=== PATIENT | male | born 1965 | race Caucasian/White ===

== ENCOUNTER → 2019-10-12 | Outpatient (CLI) | payer SELFPAY | PROVIDERS: Family Provider Nurse Practitioner Family; Visit Provider Nurse Practitioner Psychiatric/Mental Health | DX: F90.2 Attention-deficit hyperactivity disorder, combined type (principal) ==

== ENCOUNTER → 2019-11-02 08:41 | Outpatient (BNVA) | payer OTHER, SELFPAY | PROVIDERS: Family Provider Nurse Practitioner Family; Visit Provider Nurse Practitioner Psychiatric/Mental Health | DX: F90.2 Attention-deficit hyperactivity disorder, combined type (principal) | CPT/HCPCS: 99213 ==

== ENCOUNTER 2019-11-21 22:14 | Inpatient (IN) | payer OTHER, SELFPAY ==
[2019-11-21 23:02] VITALS: BP 127/86; PULSE 92; RESP 18; TEMP 36.7; O2SAT 97; BMI 22.9
--- NOTE | 2019-11-21 23:21 | ED_ITS ---
Entered by Stacie Rae, acting as scribe for HPI - Psych General: Chief Complaint: Psychiatric Symptoms Stated Complaint: mhe Time Seen by Provider: 11/21/19 23:22 Source: patient Mode of arrival: ambulatory Limitations: no limitations History of Present Illness: HPI Narrative: 54 yo m came to the er pov for a mental health eval. PT states that he has adhd and that he decided that he didnt want to take his medicine and he wants help now. He presents after being near a bunch of ammunition reloading equipment, and then having obsessive thoughts abou t suicide. complaint: suicidal ideation Duration: constant and intermittent History of same: Yes Relieving factors: none Exacerbating factors: none Associated psychiatric symptoms: none Associated symptoms: Reports no associated symptoms; Deny auditory hallucinations or visual hallucinations Review of Systems General: Reports: other (negative unless marked) Const: Denies: fever or chills Eyes: Denies: change in vision or blurry vision ENMT: Denies: painful swallowing, swelling of lips/tongue, post nasal drip or facial/sinus pain Card: Denies: chest pain, palpitations, irregular heart rhythm, edema or swelling of feet/ankles Resp: Denies: shortness of breath, productive cough, non-productive cough or wheezing GI: Denies: abdominal pain, nausea, vomiting, blood in stool or black tarry stool : Denies: difficulty urinating, painful urination or blood in urine Skin/Breast: Denies: rash, itching or redness Neuro: Denies: headache or dizziness Psych: Reports: anxiety; Denies: visual hallucinations or auditory hallucinations PFSH ED PFSH: Statuses (acute, chronic, etc) shown below reflect problem list status as previously entered and may not be historically accurate Social History (Updated 11/02/19 @ 08:57 by Sabiha Jones LPN) Smoking and tobacco status: never smoked Quit status (tobacco): considering quitting Second hand smoke exposure: No Physical Exam Const: GENERAL APPEARANCE: cooperative and anxious ORIENTATION/CONSCIOUSNESS: Yes oriented to person, Yes oriented to place and Yes oriented to time HENMT: COMMON NORMALS: normocephalic, external ears normal and external nose normal HEAD & SCALP: normocephalic; no scalp tenderness FACE & SINUS: normal facial exam NOSE: external nose normal and no nasal discharge EXTERNAL EAR: Yes external ears normal MOUTH: tongue normal THROAT: posterior oropharynx normal Eye: COMMON NORMALS: PERRL, EOMs intact bilaterally and conjunctivae normal EYELID: eyelids normal CONJUNCTIVA: Yes conjunctivae normal PUPIL: Yes PERRL Chest: COMMONS NORMALS: inspection of chest normal CHEST: No tenderness Resp: COMMON NORMALS: clear to auscultation bilaterally EFFORT & INSPECTION: No tachypneic, No respiratory distress, No retractions, No uses accessory muscles and No tracheal deviation AUSCULTATION: clear to auscultation bilaterally, no rhonchi, no wheezes and lung sounds not diminished Cardio: COMMON NORMALS: regular rate and regular rhythm RATE: regular rate RHYTHM: regular rhythm HEART SOUNDS: no murmurs PERIPHERAL PULSES: radial pulses present GI: INSPECTION: No abdominal distension AUSCULTATION: No hyperactive bowel sounds and No hypoactive bowel sounds PALPATION: No guarding and No rigid PERCUSSION: no dullness to percussion and no tympanic to percussion : COMMON NORMALS: Yes no CVA tenderness BLADDER/KIDNEY EXAM: Yes no CVA tenderness Back/Pelvis: COMMON NORMALS: no CVA tenderness Neuro: SENSORIUM/ORIENTATION: Yes oriented to person, Yes oriented to place and Yes oriented to time Psych: COMMON NORMALS: cooperative ATTITUDE: Yes agitated and No aggressive ACTIVITY/MOTOR BEHAVIOR: Yes psychomotor agitation SPEECH: Yes pressured MOOD & AFFECT: Yes anxious and Yes fearful THOUGHT PROCESS: disorganized THOUGHT CONTENT: Yes suicidality ATTENTION/CONCENTRATION: Yes attention grossly intact INSIGHT: fair Skin: COMMON NORMALS: no rashes or lesions noted GENERAL SKIN EXAM: no rashes or lesions noted MDM - Psych MDM Narrative: Medical decision making narrative: 54-year-old male presenting with recurrent thoughts of suicide today. This worried him, so he came to the emergency department for psychiatric admission willingly. His laboratory showed only a slightly elevated salicylate level. His bicarbonate level was mildly low. Salicylate and BMP will be repeated later this morning to ensure they are not worsening. His EKG showed no acute ST changes. He is otherwise medically stable. His urine drug screen was positive for barbiturates, but he takes butalbital for migraine Lab Data: Attestation: I reviewed the patient's lab results. Labs: Lab Results 11/21/19 11/21/19 11/21/19 Range/Units 23:25 23:25 23:46 WBC (4.0-10.0) 10^3/ uL RBC (4.1-5.3) 10^6/u L Hgb (11.7-16.6) g/dL Hct (42.0-52.0) % MCV (80-94) fL MCH (28.0-34.0) pg MCHC (30.0-36.0) g/dL RDW (12.1-15.1) % Plt Count (130-400) 10^3/c mm MPV (7.4-10.4) fL Neut % (Auto) % Lymph % (Auto) % Dorado % (Auto) % Eos % (Auto) % Baso % (Auto) % Neut # (Auto) (1.8-7.7) 10^3/u L Lymph # (Auto) (0.8-4.8) 10^3/u L Dorado # (Auto) (0.2-0.9) 10^3/u L Eos # (Auto) (0.0-0.8) 10^3/u L Baso # (Auto) (0.0-0.1) 10^3/u L Nucleated RBC % (a uto) % Nucleated RBCs # /100WBC Sodium 139 (136-145) mmol/L Potassium 3.7 (3.5-5.1) mmol/L Chloride 103 (98-107) mmol/L Carbon Dioxide 19 L (22-29) mmol/L Anion Gap 20.7 H (5-19) BUN 11 (6-20) mg/dL Creatinine 1.1 (0.7-1.2) mg/dL GFR Calculation 69.5 L (90-130) mL/min Glucose 144 H (65-115) mg/dL Calcium 9.5 (8.5-10.5) mg/dL Total Bilirubin 0.2 (0.15-1.2) mg/dL AST 15 (0-40) U/L ALT 9 (0-41) U/L Alkaline Phosphata se 99 (40-130) IU/L Total Protein 7.8 (6.6-8.7) g/dL Albumin 4.4 (3.5-5.2) g/dL Globulin 3.4 (1.3-4.6) g/dL Urine Color Yellow (Yellow) Urine Appearance Clear (CLEAR) Urine pH 5 (5-7) Ur Specific Gravit y 1.015 (1.005-1.030) Urine Protein Neg (Negative) Urine Glucose (UA) Norm (Normal) Urine Ketones Negative (Negative) Urine Occult Blood Neg (Negative) Urine Nitrate Negative (Negative) Urine Bilirubin Neg (NEGATIVE) Urine Urobilinogen Norm (Negative) mg/dL Ur Leukocyte Lenka ase Negative (Negative) Salicylates 12.8 H (3-10) mg/dL Urine Opiates Scre en Negative (Negative) ng/mL Acetaminophen < 5.0 L (10-30) ug/mL Ur Barbiturates Sc reen Positive H (Negative) ng/mL Ur Phencyclidine S crn Negative (Negative) ng/mL Ur Amphetamines Sc reen Negative (Negative) ng/mL U Benzodiazepines Scrn Negative (Negative) ng/mL Claiborne (0.6-1.2) mmol/L Urine Cocaine Scre en Negative (Negative) ng/mL U Marijuana (THC) Screen Negative (Negative) ng/mL Ethyl Alcohol 67 H (0-10) mg/dL 11/21/19 11/22/19 Range/Units 23:46 00:46 WBC 6.3 (4.0-10.0) 10^3/ uL RBC 4.57 (4.1-5.3) 10^6/u L Hgb 14.7 (11.7-16.6) g/dL Hct 44.0 (42.0-52.0) % MCV 96.3 H (80-94) fL MCH 32.2 (28.0-34.0) pg MCHC 33.4 (30.0-36.0) g/dL RDW 12.7 (12.1-15.1) % Plt Count 284 (130-400) 10^3/c mm MPV 9.4 (7.4-10.4) fL Neut % (Auto) 44.9 % Lymph % (Auto) 43.3 % Dorado % (Auto) 8.7 % Eos % (Auto) 1.9 % Baso % (Auto) 1.0 % Neut # (Auto) 2.8 (1.8-7.7) 10^3/u L Lymph # (Auto) 2.7 (0.8-4.8) 10^3/u L Dorado # (Auto) 0.6 (0.2-0.9) 10^3/u L Eos # (Auto) 0.1 (0.0-0.8) 10^3/u L Baso # (Auto) 0.1 (0.0-0.1) 10^3/u L Nucleated RBC % (a uto) 0 % Nucleated RBCs # 0.0 /100WBC Sodium (136-145) mmol/L Potassium (3.5-5.1) mmol/L Chloride (98-107) mmol/L Carbon Dioxide (22-29) mmol/L Anion Gap (5-19) BUN (6-20) mg/dL Creatinine (0.7-1.2) mg/dL GFR Calculation (90-130) mL/min Glucose (65-115) mg/dL Calcium (8.5-10.5) mg/dL Total Bilirubin (0.15-1.2) mg/dL AST (0-40) U/L ALT (0-41) U/L Alkaline Phosphata se (40-130) IU/L Total Protein (6.6-8.7) g/dL Albumin (3.5-5.2) g/dL Globulin (1.3-4.6) g/dL Urine Color (Yellow) Urine Appearance (CLEAR) Urine pH (5-7) Ur Specific Gravit y (1.005-1.030) Urine Protein (Negative) Urine Glucose (UA) (Normal) Urine Ketones (Negative) Urine Occult Blood (Negative) Urine Nitrate (Negative) Urine Bilirubin (NEGATIVE) Urine Urobilinogen (Negative) mg/dL Ur Leukocyte Lenka ase (Negative) Salicylates (3-10) mg/dL Urine Opiates Scre en (Negative) ng/mL Acetaminophen (10-30) ug/mL Ur Barbiturates Sc reen (Negative) ng/mL Ur Phencyclidine S crn (Negative) ng/mL Ur Amphetamines Sc reen (Negative) ng/mL U Benzodiazepines Scrn (Negative) ng/mL Claiborne 0.1 L (0.6-1.2) mmol/L Urine Cocaine Scre en (Negative) ng/mL U Marijuana (THC) Screen (Negative) ng/mL Ethyl Alcohol (0-10) mg/dL Discharge Plan Discharge Admit Provider: Chico Del Rio Coding Level of Care Code ED Nurse Assessor for Chg Fwd The documentation recorded by the Butch brooks Stephanie Lyn, accurately reflects the service I personally performed and the decisions made by Tung brantley Jeremy John, DO Nov 21, 2019 22:14
--- NOTE | 2019-11-21 23:32 | ECG_ITS ---
Measurements Intervals [place] Rate: 90 P: 6 CT: 149 QRS: 82 QRSD: 85 T: 35 QT: 343 QTc: 421 SINUS RHYTHM POSSIBLE LEFT ATRIAL ENLARGEMENT [-0.1mV P WAVE IN V1/V2] LOW QRS VOLTAGE IN PRECORDIAL LEADS [QRS DEFLECTION < 1.0 mV IN CHEST LEADS] Compared to ECG 02/29/2016 06:26:26 Low QRS voltage now present Sinus tachycardia no longer present Electronically Signed On 11-22-2019 20:04:38 SURVEY PROJECT MANAGER by Priscila Morales M.D. [email or web address] beck
[2019-11-22 00:05] LABS: Add Urine Microscopic? NO
[2019-11-22 00:14] LABS: Barbiturates Screen Urine Positive (Negative); Bilirubin Urine Neg (NEGATIVE); Blood Urine Neg (Negative); Glucose Urine UA Norm (Normal); Ketones Urine Negative (Negative); Leukocyte Esterase Urine Negative (Negative); Nitrate Urine Negative (Negative); Protein Urine Neg (Negative); Specific Gravity, Urine 1.015 (1.005-1.030); Urine Appearance Clear (CLEAR); Urine Color Yellow (Yellow); Urobilinogen Urine Norm (Negative); pH Urine 5 (5-7)
[2019-11-22 00:15] LABS: Amphetamines Screen Urine Negative (Negative); Benzodiazepines Screen Urine Negative (Negative); Cocaine Screen Urine Negative (Negative); Opiate Screen Urine Negative (Negative); PCP Screen Urine Negative (Negative); THC Screen Urine Negative (Negative)
[2019-11-22 00:21] LABS: Alanine Aminotransferase 9 U/L (0-41); Albumin Level 4.4 g/dL (3.5-5.2); Alcohol Level 67 mg/dL (0-10); Alkaline Phosphatase 99 IU/L (40-130); Anion Gap 20.7 (5-19); Aspartate Amino Transferase 15 U/L (0-40); Blood Urea Nitrogen 11 mg/dL (6-20); Calcium 9.5 mg/dL (8.5-10.5); Carbon Dioxide 19 mmol/L (22-29); Chloride 103 mmol/L (98-107); Globulin 3.4 g/dL (1.3-4.6); Glomerular Filtration Rate 69.5 mL/min (90-130); Glucose 144 mg/dL (65-115); Potassium 3.7 mmol/L (3.5-5.1); Salicylate 12.8 mg/dL (3-10); Sodium 139 mmol/L (136-145); Total Bilirubin 0.2 mg/dL (0.15-1.2); Total Protein 7.8 g/dL (6.6-8.7)
[2019-11-22 00:24] LABS: Acetaminophen < 5.0 ug/mL (10-30)
[2019-11-22 00:28] LABS: Lithium 0.1 mmol/L (0.6-1.2)
[2019-11-22 00:57] LABS: Basophils # 0.1 10^3/uL (0.0-0.1); Eosinophils # 0.1 10^3/uL (0.0-0.8); Eosinophils % 1.9 %; Hemoglobin 14.7 g/dL (11.7-16.6); Lymphocytes # 2.7 10^3/uL (0.8-4.8); Lymphocytes % 43.3 %; Mean Corpuscular HGB Conc 33.4 g/dL (30.0-36.0); Mean Corpuscular Hemoglobin 32.2 pg (28.0-34.0); Mean Corpuscular Volume 96.3 fL (80-94); Mean Platelet Volume 9.4 fL (7.4-10.4); Monocytes # 0.6 10^3/uL (0.2-0.9); Monocytes % 8.7 %; Neutrophils # 2.8 10^3/uL (1.8-7.7); Neutrophils % 44.9 %; Nucleated Red Blood Cells % 0 %; Platelet Count 284 10^3/cmm (130-400); Red Blood Count 4.57 10^6/uL (4.1-5.3); Red Cell Distribution Width 12.7 % (12.1-15.1); White Blood Count 6.3 10^3/uL (4.0-10.0)
[2019-11-22 02:28] VITALS: BP 118/81; PULSE 80; RESP 16; O2SAT 98
[2019-11-22 02:56] VITALS: BP 110/81; PULSE 88; RESP 19; TEMP 36.7; O2SAT 98
[2019-11-22 06:00] VITALS: BP 124/73; PULSE 85; RESP 20; TEMP 36.8; O2SAT 97
[2019-11-22] MEDS: nicotine 2 mg Gum BUCCAL ×3 (08:10→17:45)
[2019-11-22] MEDS: folic acid 1 mg Tablet PO (09:26)
[2019-11-22] MEDS: thiamine 100 mg Tablet PO (09:26)
[2019-11-22] MEDS: multivitamin therapeutic Tablet 1 TAB PO (09:26)
[2019-11-22 10:57] LABS: Anion Gap 15.3 (5-19); Blood Urea Nitrogen 18 mg/dL (6-20); Calcium 9.5 mg/dL (8.5-10.5); Carbon Dioxide 21 mmol/L (22-29); Chloride 104 mmol/L (98-107); Creatinine Clr Calc Pharmacy 85.9799; Glomerular Filtration Rate 77.6 mL/min (90-130); Glucose 100 mg/dL (65-115); Osmolality Calculated 279 mOsm/kg (285-295); Potassium 4.3 mmol/L (3.5-5.1); Salicylate 3.7 mg/dL (3-10); Sodium 136 mmol/L (136-145)
[2019-11-22] MEDS: methylphenidate 10 mg Tablet 40 MG PO ×2 (11:04→17:03)
[2019-11-22 14:00] VITALS: BP 124/73; PULSE 85; RESP 20; TEMP 36.8; O2SAT 97
--- NOTE | 2019-11-22 14:09 | P.HP_ITS ---
Providers/Chief Complaint Admitting Physician: Chico Del Rio MD Primary Care Provider: Abdifatah He MD Chief Complaint: SI HPI NPU History of Present Illness Denny Gleason is a 54 year old male who presented to the emergency department reporting that he needed to get restarted on his medication. There is some confusing talk about his ADHD and he'll needing his Adderall which was stopped but needed to be restarted. He was admitted to the neuropsych unit due to impulsivity, racing thoughts and inability to function in his current state. He reports he had been on lithium several months ago and stopped taking it but continued to take the Adderall. He reports that over the last several days he stopped taking the Adderall and is impulsivity even had gotten worse. He endorses that he couldn't sleep, he blew $12,000 in a casino in [place], he is getting strippers even though he has a girlfriend, and he is not able to settle his mind. He is very resistant to the idea that this is mainly but it is clearly so. We reviewed his evaluation from 2018 here at [facility] and that is included below. He endorsed that the information found therein was accurate. We discussed the risks benefits alternatives of getting him back on a mood stabilizer particularly the lithium that helped him in the past, and he understood and agreed to see as documented in his note. Of note he felt that at the really elevated dose that he was having a metallic taste in his mouth. It was unclear that he was getting regular or yearly lithium levels. Psychiatric history: He reports that the information below is accurate. He reports that he has had a few psychiatric hospitalizations in his life. Substance abuse history: He denies smoking cigarettes but does report that he does about a can of chew every 4 days. 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 He reports that he puts that she wanted the other side. He reports he has a beer occasionally but because of his hepatitis C he rarely does that. He denies marijuana or any other illicit drug. He denies any rehabs reports he had a DUI in college. Family history: He denies any contributory issues of mental health or addiction in his family no suicide attempts or completions. Psychosocial history: Please see below, but he does report being one of 7 children he is in the middle. His parents were together when he was born he reports he had a great childhood he graduated high school and college. He endorses being heterosexual with his longest relationship between 12 years. 1 time and 1 time. He never had children. Per 02/10/18 eval: [facility] Psychiatric Evaluation [facility] Psychiatric Evaluation Time in: 2:05pm Time out: 2:50pm CHIEF COMPLAINT: 'I'm here to get settled in on my meds' HISTORY OF PRESENT ILLNESS: Patient came for psych eval. He said he has been taking medications all his life and he is currently on medications which are controlling his symptoms. 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 He said his sleep is better with Seroquel. He said he takes the Seroquel around 9pm, sleeps around 9:30pm/ 9:40pm when he wakes up to use the restroom once or twice and wakes up finally around 7am/ 7:30am. He said in the past sometimes (when not on medications he would not sleep). He said when he is manic, he drives fast, always on the go, rapid speech, gambles, making poor decisions and is easily distractible. He said he has been up for 72 hours without sleep. He said his family refer to him as a compulsive spender. Modified from mental health assessment dated 02/03/18: reports a persistent pattern of inattention and/or hyperactivity-impulsivity that interferes with function as characterized by often fails to pay attention to details, difficulty sustaining attention in tasks, and is often easily distracted by extraneous stimuli. Reports often fidgets and squirms in seat, feeling restless, unable to engage in leisure activities, often on the go, and often talks excessively. My problem is concentrating, focusing on anything, watching a tv or going the drive-in. I fidget a lot.? I am always on the go and have rapid speech. Several inattentive or hyperactive-impulsive symptoms were present prior to age 11 years. Several inattentive or hyperactive-impulse symptoms are present at home and school. Modified from mental health assessment dated 02/03/18: ATTENTION- DEFICIT/HYPERACTIVITY DISORDER CRITERIA: reports a persistent pattern of inattention and/or hyperactivity-impulsivity that interferes with function as characterized by often fails to pay attention to details, difficulty sustaining attention in tasks, and is often easily distracted by extraneous stimuli. Reports often fidgets and squirms in seat, feeling restless, unable to engage in leisure activities, often on the go, and often talks excessively. My problem is concentrating, focusing on anything, watching a tv or going the drive-in. I fidget a lot.? I am always on the go and have rapid speech. Several inattentive or hyperactive-impulsive symptoms were present prior to age 11 years. Several inattentive or hyperactive-impulse symptoms are present at home and school. Patient denied symptoms suggestive of psychosis. Patient requested to go the [facility]) to have his lab test done. PAST PSYCHIATRIC HISTORY: -Medication trials include Depakote (made him feel sluggish), weight gain, Ritalin (helped him but he stopped taking it for unclear reasons). -Patient said he was admitted twice in 1 month. He said he initially lied to them and told them he would take his medications but he did not and ended up in hospital again. -Patient denied suicide attempt. -Patient said he was diagnosed with ADHD and Bipolar in the past. FAMILY MEDICAL HISTORY: Family Psychiatric History: None Reported Substance Use within Family: None Reported History of Suicide in Family: No PAST MEDICAL HISTORY: Cancer (jaw cancer), Surgical Procedure (kidney stone, appendix, jaw, left knee) MEDICATION LIST: -C[place] carb 150mg, take 3 capsules PO bid -Adderall XR 10mg, 2 capsules PO q am. -Seroquel 100mg PO qhs -Hydroxyzine 50mg PO qhs -Prazosin 1 mg PO qhs. SUBSTANCE ABUSE HISTORY: Patient denied. SOCIAL HISTORY: Patient was born in [place], [place] was raised by parents along 5 brothers and 1 sister. He said he was diagnosed with ADHD and bipolar in college. He said he graduated from [employer] and has an bachelors in marketing. He said he twice, is currently and has no children due to a baseball injury. Meds NPU Home Medications Medication Instructions Recorded Confirmed Type butalbital-acetaminophen 1 tab PO DAILY 11/21/19 11/21/19 History glecaprevir-pibrentasvir [Mavyret] 1 tab PO DAILY 11/21/19 11/21/19 History lithium carbonate 800 mg PO BID 11/21/19 11/21/19 History Allergies Allergy/AdvReac Type Severity Reaction Status Date / Time No Known Allergies Allergy Verified 11/02/19 08:52 PFSH NPU PFSH: Statuses (acute, chronic, etc) shown below reflect problem list status as previously entered and may not be historically accurate Social History (Updated 11/02/19 @ 08:57 by Sabiha Jones LPN) Smoking and tobacco status: never smoked Quit status (tobacco): considering quitting Second hand smoke exposure: No Mental Status Exam MSE Comments: This is a well-nourished well-developed white male with adequate dress, grooming and eye contact. No abnormal movements except for significant psychomotor agitation. Cooperative with exam in no acute distress. Speech was pressured with significant increased rate and volume. Mood described as really good, affect elevated/manic. Thought process organized. Thought content: Patient denied any suicidal or homicidal ideations, there were no delusions reported noted, he denied any auditory or visual hallucinations. Attention and concentration are marginal, memory appears reliable but none were formally tested. He is alert and oriented ?3. Insight and judgment are limited. Vitals/I&O/Wt Last Vital Signs Temp 98.2 F 11/22/19 06:00 Pulse 85 11/22/19 06:00 Resp 20 H 11/22/19 06:00 BP 124/73 11/22/19 06:00 Pulse Ox 97 11/22/19 06:00 Weight last 48 hrs Weight 72.575 kg Data NPU : 11/22/19 00:46 11/22/19 10:03 A&P Assessment and plan (1) Bipolar 1 disorder, manic, moderate: This a 54 year old white male who presents in rodolfo liliana, off of his medication with desire to resume treatment. 1. Continue current medication. 2. Restart Cedar Rock 3. consider stopping ritalin. 4. Q 15 min safety checks. 5. Encourage individual, group and milieu therapy. 6. Recommend appropriate aftercare at discharge. Status: Acute Code(s): F31.12 - Bipolar disorder, current episode manic without psychotic features, moderate (2) Liliana: Status: Acute Code(s): F30.9 - Manic episode, unspecified (3) ADHD: Status: Acute Code(s): F90.9 - Attention-deficit hyperactivity disorder, unspecified type (4) Alcohol abuse: Status: Acute Code(s): F10.10 - Alcohol abuse, uncomplicated Involuntary Hold Information 96 Hour Hold: 96 Hour Involuntary Admission: No Attestations NPU Medical Necessity Statement*: Inpatient hospitalization is medically necessary and the clinically appropriate intervention at this time. Overnight for over two midnights. Start lithium and titrate. Likely LOS 4-6 days Coding Level of Care Code Acute Rn Family Practice for [facility] Fwd Diagnoses Bipolar 1 disorder, manic, moderate F31.12 Liliana F30.9 ADHD F90.9 Alcohol abuse F10.10
[2019-11-22 14:34] VITALS: BP 120/79; PULSE 88; RESP 18; TEMP 36.7; O2SAT 96
[2019-11-22] MEDS: lithium carbonate 300 mg Capsule PO (15:12)
[2019-11-22] MEDS: trazodone 50 mg Tablet PO (20:33)
[2019-11-22] MEDS: lithium carbonate 300 mg Capsule 600 MG PO (20:34)
--- NOTE | 2019-11-22 20:36 | PC.NURSE ---
TRAZODONE 50 MG PO GIVEN SLEEP AIDE.
[2019-11-22 22:00] VITALS: BP 105/59; PULSE 79; RESP 18; TEMP 36.9; O2SAT 97
[2019-11-23 06:00] VITALS: BP 112/69; PULSE 78; RESP 19; TEMP 36.2; O2SAT 95
[2019-11-23] MEDS: nicotine 2 mg Gum BUCCAL ×4 (06:33→17:56)
[2019-11-23] MEDS: folic acid 1 mg Tablet PO (08:49)
[2019-11-23] MEDS: thiamine 100 mg Tablet PO (08:49)
[2019-11-23] MEDS: multivitamin therapeutic Tablet 1 TAB PO (08:49)
[2019-11-23] MEDS: methylphenidate 10 mg Tablet 40 MG PO ×2 (08:50→17:12)
--- NOTE | 2019-11-23 10:29 | P.PN_ITS ---
Subjective NPU Subjective: Interval history: Denny presents today reporting that the lithium resumption isn't working well. He reports he always does well on lithium. We continued to discuss the fact that ultimately the Adderall long- term may be a bad idea. For now to avoid multiple moving carts we will continue the medication as prescribed but he is aware that there are concerns about how the Adderall could be feeding into the liliana which is a legitimate presents for him still. He struggling with sleep and is eating okay. Mental Status Exam MSE Comments: This is a well-nourished well-developed white male with adequate dress, grooming and eye contact. No abnormal movements except for significant psychomotor agitation. Cooperative with exam in no acute distress. Speech was pressured with significant increased rate and volume. Mood described as great, affect elevated/manic. Thought process organized. Thought content: Patient denied any suicidal or homicidal ideations, there were no delusions reported noted but he does have grandiosity, he denied any auditory or visual halluci nations. Attention and concentration are marginal, memory appears reliable but none were formally tested. He is alert and oriented ?3. Insight and judgment are limited. Vitals/I&O/Wt Last Vital Signs Temperature 97.2, pulse 78, respirations 19, pulse ox 95%, blood pressure 112/69. Data NPU : 11/22/19 00:46 11/22/19 10:03 A&P Additional A&P Information (1) Bipolar 1 disorder, manic, moderate: This a 54 year old white male who presents in rodolfo liliana, off of his medication with desire to resume treatment. 1. Continue current medication. 2. Q 15 min safety checks. 3. Encourage individual, group and milieu therapy. 4. Recommend appropriate aftercare at discharge. (2) Liliana: (3) ADHD: (4) Alcohol abuse: Involuntary Hold Information 96 Hour Hold: 96 Hour Involuntary Admission: No Attestations NPU Medical Necessity Statement*: Inpatient hospitalization is medically necessary and the clinically appropriate intervention at this time. Overnight for over two midnights. Start lithium and titrate. Likely LOS 4-6 days Coding Level of Care Code Acute Capacitor Pack Press Operator for Chiara Coffey
[2019-11-23 13:27] VITALS: BP 131/80; PULSE 77; RESP 20; TEMP 36.8; O2SAT 98
[2019-11-23] MEDS: lithium carbonate 300 mg Capsule 600 MG PO (20:55)
[2019-11-23 21:08] VITALS: BP 117/83; PULSE 92; RESP 26; TEMP 36.4; O2SAT 98
[2019-11-24] MEDS: nicotine 2 mg Gum BUCCAL ×2 (05:35→10:12)
[2019-11-24 06:00] VITALS: BP 118/73; PULSE 67; RESP 20; TEMP 37; O2SAT 97
--- NOTE | 2019-11-24 08:17 | PM.NPN ---
Subjective NPU Subjective: Interval history: The patient states that he is feeling better and I asked him what better actually means to him. He says that his mind is slowing down and he is beginning to be able to focus. He can understand that his speech is still pressured and his thoughts are racing but he can keep track of them now. Medications: Reviewed: Yes Medication Review Details: The patient asks if his second dose of stimulant could be administered at 1400 instead of at noon. I discussed this with the medication nurse and she will make that change. Mental Status Exam MSE Comments: The patient is alert and oriented to person, place, time, and situation. Hygiene is disheveled. Sensorium is spotty but he actually understands what we tell him and what's going on around him. The patient maintains appropriate eye contact, is cooperative and relates well to me. Behavior shows moderate psychomotor agitation, driven by waning liliana. Mood is mildly euphoric. Affect is appropriate to his mood. Thought processes are scattered but they are free of blocking. However, they are definitely racing and given to flight of ideas. Speech is of normal volume, without dysarthria or aprosody but remains pressured. The patient denies auditory or visual hallucinations or delusions. The patient denies suicidal or homicidal ideation, plan or intent. He exhibits no assaultive behavior this morning. Memory is intact for recent and remote events. Fund of knowledge is adequate given vocabulary. Insight and judgment are impaired despite his recognition of problems and desire for treatment. For example, he minimizes his alcohol consumption and remains in rodolfo denial. Vitals/I&O/Wt Last Vital Signs Temp 98.6 F 11/24/19 06:00 Pulse 67 11/24/19 06:00 Resp 20 H 11/24/19 06:00 BP 118/73 11/24/19 06:00 Pulse Ox 97 11/24/19 06:00 Data NPU : 11/22/19 00:46 11/22/19 10:03 A&P Additional A&P Information Assessment and plan (1) Bipolar 1 disorder, manic, moderate: This a 54 year old white male who presents in rodolfo liliana, off of his medication with desire to resume treatment. 1. Continue current medication. 2. [place] is now at 600 mg p.o. twice daily. [place] level should be done in the next few days. 3. Amphetamine salts p.o. twice daily at 0700 and 1400. 4. Q 15 min safety checks. 5. Encourage individual, group and milieu therapy. 6. Recommend appropriate aftercare at discharge. The patient states he is a long-term patient of Dr. 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 He intends to return to continuing care over there. (2) Liliana: (3) ADHD: (4) Alcohol abuse: Involuntary Hold Information 96 Hour Hold: 96 Hour Involuntary Admission: No Attestations NPU Medical Necessity Statement*: The patient is still clearly manic but improving. I anticipate 3 to 5 midnights at least 2 midnights' additional stay is indicated. Time Spent in Patient Care: Greater than 35 minutes (>than 50% of time spent in counselling and/or direct pt care on unit). Coding Level of Care Code Acute Stamping Die Maker for Chiara Coffey
[2019-11-24] MEDS: folic acid 1 mg Tablet PO (08:20)
[2019-11-24] MEDS: thiamine 100 mg Tablet PO (08:20)
[2019-11-24] MEDS: lithium carbonate 300 mg Capsule 600 MG PO ×2 (08:20→16:45)
[2019-11-24] MEDS: methylphenidate 10 mg Tablet 40 MG PO ×2 (08:20→13:00)
[2019-11-24] MEDS: multivitamin therapeutic Tablet 1 TAB PO (08:20)
[2019-11-24] MEDS: nicotine 21 mg Patch 1 PATCH TRANSDERMA (13:00)
[2019-11-24 14:00] VITALS: BP 118/80; PULSE 103; RESP 20; TEMP 36.8; O2SAT 98
[2019-11-24 19:54] VITALS: BP 126/86; PULSE 83; RESP 18; TEMP 36.9
[2019-11-24] MEDS: trazodone 50 mg Tablet PO (20:20)
[2019-11-25 05:31] VITALS: BP 114/79; PULSE 82; RESP 18; TEMP 36.5
[2019-11-25] MEDS: nicotine 2 mg Gum BUCCAL ×2 (06:19→09:50)
[2019-11-25] MEDS: lithium carbonate 300 mg Capsule 600 MG PO (08:01)
[2019-11-25] MEDS: folic acid 1 mg Tablet PO (08:01)
[2019-11-25] MEDS: thiamine 100 mg Tablet PO (08:01)
[2019-11-25] MEDS: multivitamin therapeutic Tablet 1 TAB PO (08:01)
[2019-11-25] MEDS: methylphenidate 10 mg Tablet 40 MG PO (08:01)
[2019-11-25 13:49] VITALS: BP 124/80; PULSE 97; RESP 20; TEMP 36.8; O2SAT 98
[2019-11-25 14:56] VITALS: BP 124/80; PULSE 97; RESP 20; TEMP 36.8; O2SAT 98
[2019-11-25 14:58] LABS: Lithium 0.7 mmol/L (0.6-1.2)
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
== END 2019-11-25 15:45 | disposition home or self-care (01) | DRG 885 ==
LOC: ER 11-22 01:45 → NP 11-22 01:45
PROVIDERS: Psychiatry & Neurology Psychiatry; Admitting Provider Psychiatry & Neurology Psychiatry; Emergency Provider Emergency Medicine; PCP Family Medicine; Visit Provider Psychiatry & Neurology Psychiatry
DX: F31.9 Bipolar disorder, unspecified (principal); F90.9 Attention-deficit hyperactivity disorder, unspecified type; F17.220 Nicotine dependence, chewing tobacco, uncomplicated; B19.20 Unspecified viral hepatitis C without hepatic coma; Z85.89 Personal history of malignant neoplasm of other organs and systems
CPT/HCPCS: 12345; 36415; 80048; 80053; 80178; 80307; 81003; 85025; 93005; 99284; A9270

== ENCOUNTER → 2020-01-21 08:44 | Outpatient (BNVA) | payer OTHER, SELFPAY | PROVIDERS: PCP Family Medicine; Visit Provider Family Medicine | DX: F31.12 Bipolar disorder, current episode manic without psychotic features, moderate (principal) | CPT/HCPCS: 80178 ==

== ENCOUNTER 2020-03-06 19:19 | Inpatient (IN) | payer OTHER, SELFPAY ==
[2020-03-06 19:29] VITALS: BP 122/82; PULSE 122; RESP 14; TEMP 36.6; O2SAT 95; BMI 23.6
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
[2020-03-06 20:20] VITALS: BP 122/83; PULSE 122; RESP 20; TEMP 36.6; O2SAT 96
[2020-03-06 20:28] LABS: Basophils % 0.5 %; Eosinophils % 0.4 %; Hematocrit 50.4 % (42.0-52.0); Hemoglobin 17.5 g/dL (11.7-16.6); Lymphocytes # 2.9 10^3/uL (0.8-4.8); Mean Corpuscular HGB Conc 34.7 g/dL (30.0-36.0); Mean Corpuscular Volume 94.9 fL (80-94); Mean Platelet Volume 9.7 fL (7.4-10.4); Monocytes # 0.7 10^3/uL (0.2-0.9); Monocytes % 9.7 %; Neutrophils # 3.9 10^3/uL (1.8-7.7); Neutrophils % 51.3 %; Nucleated Red Blood Cells % 0 %; Platelet Count 350 10^3/cmm (130-400); Red Blood Count 5.31 10^6/uL (4.1-5.3); Red Cell Distribution Width 12.4 % (12.1-15.1); White Blood Count 7.5 10^3/uL (4.0-10.0)
[2020-03-06] MEDS: LORazepam 1 mg Tablet PO (20:30)
[2020-03-06 20:48] LABS: Lithium 0.1 mmol/L (0.6-1.2)
[2020-03-06 20:59] LABS: Alanine Aminotransferase 11 U/L (0-41); Albumin Level 5.1 g/dL (3.5-5.2); Alcohol Level 11 mg/dL (0-10); Alkaline Phosphatase 71 IU/L (40-130); Aspartate Amino Transferase 15 U/L (0-40); Blood Urea Nitrogen 12 mg/dL (6-20); Carbon Dioxide 18 mmol/L (22-29); Chloride 103 mmol/L (98-107); Globulin 2.9 g/dL (1.3-4.6); Glomerular Filtration Rate 69.5 mL/min (90-130); Glucose 87 mg/dL (65-115); Osmolality Calculated 281 mOsm/kg (285-295); Salicylate 28.1 mg/dL (3-10); Sodium 138 mmol/L (136-145); Thyroid Stimulating Hormone 0.78 uIU/mL (0.27-4.20); Total Bilirubin 0.2 mg/dL (0.15-1.2)
[2020-03-06 21:01] LABS: Acetaminophen < 5.0 ug/mL (10-30)
[2020-03-06 21:06] LABS: Urine Appearance Clear (CLEAR); Urine Color Yellow (Yellow)
[2020-03-06 21:07] LABS: Add Urine Microscopic? YES; Bacteria Urine TRACE; Bilirubin Urine Neg (NEGATIVE); Blood Urine 2+ (Negative); Glucose Urine UA Norm (Normal); Ketones Urine Negative (Negative); Leukocyte Esterase Urine Negative (Negative); Nitrate Urine Negative (Negative); Protein Urine Neg (Negative); RBC Urine RARE /hpf (0-2); Squamous Epithelial Cell Urine RARE (0-5); Urobilinogen Urine Norm (Negative); WBC Urine 0-4 /hpf (0-5); pH Urine 5 (5-7)
[2020-03-06 21:10] LABS: Amphetamines Screen Urine Negative (Negative); Barbiturates Screen Urine Positive (Negative); Benzodiazepines Screen Urine Negative (Negative); Cocaine Screen Urine Negative (Negative); Opiate Screen Urine Negative (Negative); PCP Screen Urine Negative (Negative); THC Screen Urine Negative (Negative)
[2020-03-06] MEDS: ibuprofen 600 mg Tablet PO (21:56)
[2020-03-06 22:05] VITALS: BP 101/75; PULSE 107; RESP 18; TEMP 36.8; O2SAT 98
[2020-03-07] MEDS: acetaminophen 325 mg Tablet 650 MG PO (05:37)
[2020-03-07 06:00] VITALS: BP 102/72; PULSE 74; RESP 18; TEMP 36.8; O2SAT 98
[2020-03-07] MEDS: OLANZapine 5 mg ODT PO (07:45)
--- NOTE | 2020-03-07 07:45 | PC.NURSE ---
PRN ZYPREXA ZYDIS ZYPREXA ZYDIS 5MG PO PER PATIENT C/O AGITATION/ANXIETY. WILL CONTINUE TO MONITOR FOR MEDICATION EFFECTIVENESS.
--- NOTE | 2020-03-07 08:50 | PC.NURSE ---
PRN ZYPREXA ZYDIS FOLLOW UP MEDICATION EFFECTIVE. NO FURTHER C/O ANXIETY/AGITATION.
--- NOTE | 2020-03-07 11:41 | P.HP_ITS ---
Providers/Chief Complaint Admitting Physician: Chico Del Rio MD Primary Care Provider: Abdifatah He MD Chief Complaint: mhe HPI NPU History of Present Illness Denny Gleason is a 54 year old male who presented to the emergency room with rodolfo manic symptoms with hyperactivity, stream of consciousness, feeling impulsive and grandiose. He reports that he stopped taking his medication about a week or more ago. And when he realized he should probably start taking it is my started thinking of ways that he knew was dangerous and was fearful that he would hurt himself even if not intentionally. We reviewed his last evaluation from November and he denies any changes of any substantive amount. He reports he still connected with his girlfriend and that he was with her right before he stopped taking his medication. He reports that his family is very supportive but he unfortunately was being dishonest about whether or not he was taking his medication. He reports that he gets somewhat frustrated because he wants to be normal and he knows that he is not. [place] [facility] [place]: History of Present Illness Denny Gleason is a 54 year old male who presented to the emergency department reporting that he needed to get restarted on his medication. There is some confusing talk about his ADHD and he'll needing his Adderall which was stopped b ut needed to be restarted. He was admitted to the neuropsych unit due to impulsivity, racing thoughts and inability to function in his current state. He reports he had been on lithium several months ago and stopped taking it but continued to take the Adderall. He reports that over the last several days he stopped taking the Adderall and is impulsivity even had gotten worse. He endorses that he couldn't sleep, he blew $12,000 in a casino in [place], he is getting strippers even though he has a girlfriend, and he is not able to settle his mind. He is very resistant to the idea that this is mainly but it is clearly so. [place] [facility] [place] that is inclu ded below. He endorsed that the information found therein was accurate. We discussed the risks benefits alternatives of getting him back on a mood stabilizer particularly the lithium that helped him in the past, and he understood and agreed to see as documented in his note. Of note he felt that at the really elevated dose that he was having a metallic taste in his mouth. It was unclear that he was getting regular or yearly lithium levels. Psychiatric history: He reports that the information below is accurate. He reports that he has had a few psychiatric hospitalizations in his life. Substance abuse history: He denies smoking cigarettes but does report that he does about a can of chew every 4 days. 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 He reports that he puts that she wanted the other side. He reports he has a beer occasionally but because of his hepatitis C he rarely does that. He denies marijuana or any other illicit drug. He denies any rehabs reports he had a DUI in college. Family history: He denies any contributory issues of mental health or addiction in his family no suicide attempts or completions. Psychosocial history: Please see below, but he does report being one of 7 children he is in the middle. His parents were together when he was born he reports he had a great childhood he graduated high school and college. He endorses being heterosexual with his longest relationship between 12 years. 1 time and 1 time. He never had children. Per 02/10/18 eval: [facility] [place] Psychiatric [place] [facility] [place] Psychiatric [place] Time in: 2:05pm Time out: 2:50pm CHIEF COMPLAINT: 'I'm here to get settled in on my meds' HISTORY OF PRESENT ILLNESS: Patient came for psych eval. He said he has been taking medications all his life and he is currently on medications which are controlling his symptoms. 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 He said his sleep is better with Seroquel. He said he takes the Seroquel around 9pm, sleeps around 9:30pm/ 9:40pm when he wakes up to use the restroom once or twice and wakes up finally around 7am/ 7:30am. He said in the past sometimes (when not on medications he would not sleep). He said when he is manic, he drives fast, always on the go, rapid speec h, gambles, making poor decisions and is easily distractible. He said he has been up for 72 hours without sleep. He said his family refer to him as a compulsive spender. Modified from mental health assessment dated 02/03/18: reports a persistent pattern of inattention and/or hyperactivity-impulsivity that interferes with function as characterized by often fails to pay attention to details, difficulty sustaining attention in tasks, and is often easily distracted by extraneous stimuli. Reports often fidgets and squirms in seat, feeling restless, unable to engage in leisure activities, often on the go, and often talks excessively. My problem is concentrating, focusing on anything, watching a tv or going the drive-in. I fidget a lot.? I am always on the go and have rapid speech. Several inattentive or hyperactive-impulsive symptoms were present prior to age 11 years. Several inattentive or hyperactive-impulse symptoms are present at home and school. Modified from mental health assessment dated 02/03/18: ATTENTION- DEFICIT/HYPERACTIVITY DISORDER CRITERIA: reports a persistent pattern of inattention and/or hyperactivity-impulsivity that interferes with function as characterized by often fails to pay attention to details, difficulty sustaining attention in tasks, and is often easily distracted by extraneous stimuli. Reports often fidgets and squirms in seat, feeling restless, unable to engage in leisure activities, often on the go, and often talks excessively. My problem is concentrating, focusing on anything, watching a tv or going the drive-in. I fidget a lot.? I am always on the go and have rapid speech. Several inattentive or hyperactive-impulsive symptoms were present prior to age 11 years. Several inattentive or hyperactive-impulse symptoms are present at home and school. Patient denied symptoms suggestive of psychosis. Patient requested to go the [facility] to have his lab test done. PAST PSYCHIATRIC HISTORY: -Medication trials include Depakote (made him feel sluggish), weight gain, Ritalin (helped him but he stopped taking it for unclear reasons). -Patient said he was admitted twice in 1 month. He said he initially lied to them and told them he would take his medications but he did not and ended up in hospital again. -Patient denied suicide attempt. -Patient said he was diagnosed with ADHD and Bipolar in the past. FAMILY MEDICAL HISTORY: Family Psychiatric History: None Reported Substance Use within Family: None Reported History of Suicide in Family: No PAST MEDICAL HISTORY: Cancer (jaw cancer), Surgical Procedure (kidney stone, appendix, jaw, left knee) MEDICATION LIST: -[place] carb 150mg, take 3 capsules PO bid -Adderall XR 10mg, 2 capsules PO q am. -Seroquel 100mg PO qhs -Hydroxyzine 50mg PO qhs -Prazosin 1 mg PO qhs. SUBSTANCE ABUSE HISTORY: Patient denied. SOCIAL HISTORY: Patient was born in [place], [place] was raised by parents along 5 brothers and 1 sister. He said he was diagnosed with ADHD and bipolar in college. He said he graduated from [employer] and has an bachelors in [employer]. He said he twice, is currently and has no children due to a baseball injury. Meds NPU Home Medications Medication Instructions Recorded Confirmed Last Taken Type butalbital-acetaminophen 1 tab PO DAILY #30 tab 11/25/19 03/06/20 03/06/20 Rx glecaprevir 100 mg-pibrentasvir 40 3 tab PO DAILY 12/28/19 03/06/20 Unknown History mg tablet dextroamphetamine-amphetamine 20 20 mg PO BID 30 Days #60 tab 02/22/20 03/06/20 02/28/20 Rx mg tablet lithium carbonate 150 mg PO BID 03/06/20 03/06/20 02/28/20 History Allergies Allergy/AdvReac Type Severity Reaction Status Date / Time No Known Allergies Allergy Verified 02/22/20 08:44 PFS NPU PFSH: Social History Smoking and tobacco status: current every day smoker smokeless tobacco Smokeless tobacco user: chewing tobacco Smokeless tobacco details: 1 can every 4 days Quit status (tobacco): considering quitting Second hand smoke exposure: No Mental Status Exam MSE Comments: This is a well-nourished well-developed white male with adequate dress, grooming and eye contact. No abnormal movements except for psychomotor agitation. Cooperative with exam in no acute distress. Speech was pressured with increased rate and volume. Mood described as really good, affect elevated/manic. Thought process organized. Thought content: Patient denied any suicidal or homicidal ideations, there were no delusions reported noted, he denied any auditory or visual hallucinations. Attention and concentration are marginal, memory appears reliable but none were formally tested. He is alert and oriented ?3. Insight and judgment are limited. Vitals/I&O/Wt Last Vital Signs Temp 98.3 F 03/07/20 06:00 Pulse 74 03/07/20 06:00 Resp 18 03/07/20 06:00 BP 102/72 03/07/20 06:00 Pulse Ox 98 03/07/20 06:00 Weight last 48 hrs Weight 72.575 kg Data NPU : 03/06/20 20:20 03/06/20 20:20 A&P Assessment and plan (1) Alcohol abuse: Status: Acute (2) ADHD: Status: Acute Qualifiers: Attention deficit-hyperactivity disorder type: combined inattentive- hyperactive Qualified Code(s): F90.2 - Attention-deficit hyperactivity disorder, combined type (3) Liliana: Status: Acute (4) Bipolar 1 disorder, manic, moderate: Status: Acute Additional A&P Information This is a 54-year-old white male with a long history of ADHD, bipolar disorder and alcohol abuse with recent history of hospitalization with liliana earlier this year presents at least 7 days off of his medication, manic and open to restarting his medications. 1. Restart his medications. 2. Encourage individual, group and milieu therapy. 3. Continue every 15 minute checks for safety. 4. Encourage appropriate follow-up for mental health and sober living services. Involuntary Hold Information 96 Hour Hold: 96 Hour Involuntary Admission: No Attestations NPU Medical Necessity Statement*: Inpatient hospitalization is medically necessary and the clinically appropriate intervention at this time. He will be in the hospital for over to midnight. We will restart his medications and adjust as indicated. Likely length of stay 3-5 days. Coding Level of Care Code Acute [place] [facility] for Chiara Fwd Diagnoses Alcohol abuse F10.10 ADHD F90.2 Attention deficit-hyperactivity disorder type: combined inattentive- hyperactive Liliana F30.9 Bipolar 1 disorder, manic, moderate F31.12
[2020-03-07] MEDS: methylphenidate 10 mg Tablet 40 MG PO (13:28)
[2020-03-07] MEDS: lithium carbonate 150 mg Capsule 300 MG PO ×2 (13:28→17:54)
[2020-03-07 14:00] VITALS: BP 105/75; PULSE 78; RESP 20; TEMP 36.4; O2SAT 98
[2020-03-07] MEDS: clindamycin 150 mg Capsule 300 MG PO ×2 (14:07→21:16)
[2020-03-07] MEDS: nicotine 2 mg Gum BUCCAL ×2 (14:07→18:00)
[2020-03-07] MEDS: trazodone 50 mg Tablet PO (21:17)
[2020-03-07 22:00] VITALS: BP 110/58; PULSE 76; RESP 19; TEMP 36.6; O2SAT 97
[2020-03-08 06:00] VITALS: BP 118/78; PULSE 75; RESP 18; TEMP 36.8; O2SAT 98
[2020-03-08] MEDS: nicotine 2 mg Gum BUCCAL ×3 (06:17→18:08)
[2020-03-08] MEDS: methylphenidate 10 mg Tablet 40 MG PO ×2 (08:20→13:06)
[2020-03-08] MEDS: lithium carbonate 150 mg Capsule 300 MG PO ×2 (08:20→17:08)
[2020-03-08] MEDS: thiamine 100 mg Tablet PO (08:21)
[2020-03-08] MEDS: folic acid 1 mg Tablet PO (08:21)
[2020-03-08] MEDS: multivitamin therapeutic Tablet 1 TAB PO (08:21)
[2020-03-08] MEDS: clindamycin 150 mg Capsule 300 MG PO ×3 (08:21→20:57)
[2020-03-08 13:50] VITALS: BP 114/80; PULSE 74; RESP 18; TEMP 36.8; O2SAT 97
--- NOTE | 2020-03-08 14:40 | P.PN_ITS ---
Subjective NPU Subjective: Interval history: Denny presents today reporting that he is feeling a little better once his medication has been started. He is really struggling with his children to and we discussed talking to the hospitalist to identify if there is anything that we can do to assist with the situation. Later discussed the conversation with the hospitalist and he was agreeable to a plan of adding tramadol until he can get to the dentist on Friday. We discussed the plan of increasing his lithium to 900 mg a day tomorrow. And he understood and agreed to proceed as documented in this note. Mental Status Exam MSE Comments: This is a well-nourished well-developed white male with adequate dress, grooming and eye contact. No abnormal movements except for psychomotor agitation. Cooperative with exam in no acute distress. Speech was pressured with increased rate and volume. Mood described as pretty good, affect elevated/manic. Thought process organized. Thought content: Patient denied any suicidal or homicidal ideations, there were no delusions reported noted, he denied any auditory or visual hallucinations. Attention and concentration are marginal, memory appears reliable but none were formally tested. He is alert and oriented ?3. Insight and judgment are limited. Vitals/I&O/Wt Last Vital Signs Temp 98.2 F 03/08/20 21:38 Pulse 75 03/08/20 21:38 Resp 20 H 03/08/20 21:38 BP 123/82 03/08/20 21:38 Pulse Ox 97 03/08/20 21:38 Data NPU : 03/06/20 20:20 03/06/20 20:20 A&P Additional A&P Information (1) Alcohol abuse: (2) ADHD: (3) Keri: (4) Bipolar 1 disorder, manic, moderate: This is a 54-year-old white male with a long history of ADHD, bipolar disorder and alcohol abuse with recent history of hospitalization with keri earlier this year presents at least 7 days off of his medication, manic and open to restarting his medications. 1. Restart his medications.Will plan to add 300 mg of Duck tomorrow. 2. Encourage individual, group and milieu therapy. 3. Continue every 15 minute checks for safety. 4. Encourage appropriate follow-up for mental health and sober living services. Involuntary Hold Information 96 Hour Hold: 96 Hour Involuntary Admission: No Attestations NPU Medical Necessity Statement*: Inpatient hospitalization is medically necessary and the clinically appropriate intervention at this time. We will restart his medications and adjust as indicated. Likely length of stay 2-4 days. Coding Level of Care Code Acute Video Production Specialist for Chiara Coffey
[2020-03-08] MEDS: TRAMadol 50 mg Tablet PO (17:08)
[2020-03-08] MEDS: acetaminophen 325 mg Tablet 650 MG PO (18:09)
[2020-03-08] MEDS: trazodone 50 mg Tablet PO (20:57)
[2020-03-08 21:38] VITALS: BP 123/82; PULSE 75; RESP 20; TEMP 36.8; O2SAT 97
[2020-03-09] MEDS: acetaminophen 325 mg Tablet 650 MG PO ×2 (03:29→18:13)
[2020-03-09] MEDS: nicotine 2 mg Gum BUCCAL ×3 (03:30→12:01)
[2020-03-09] MEDS: TRAMadol 50 mg Tablet PO ×2 (05:13→18:13)
[2020-03-09 06:00] VITALS: BP 127/86; PULSE 84; RESP 23; TEMP 36.9; O2SAT 97
[2020-03-09] MEDS: lithium carbonate 150 mg Capsule 300 MG PO ×2 (08:04→17:02)
[2020-03-09] MEDS: multivitamin therapeutic Tablet 1 TAB PO (08:05)
[2020-03-09] MEDS: folic acid 1 mg Tablet PO (08:05)
[2020-03-09] MEDS: clindamycin 150 mg Capsule 300 MG PO ×3 (08:05→21:03)
[2020-03-09] MEDS: thiamine 100 mg Tablet PO (08:05)
[2020-03-09] MEDS: methylphenidate 10 mg Tablet 40 MG PO ×2 (08:41→12:01)
--- NOTE | 2020-03-09 13:34 | P.PN_ITS ---
Subjective NPU Subjective: Interval history: Denny presents today reporting that he is doing fairly well. He reports that his tooth is not horribly bothersome with interventions that we may. He is focused on discharge but is agreeable to being discharged tomorrow so he can make it to a walk-in appointment for his dental issues. He endorses that he has been through this keri and stopping his medication before and feels that he is capable of continuing to take his medication based on the state that he is in now. We discussed the risk benefits alternatives of increasing his lithium to 600 mg in the morning and 300 mg at night and testing his lithium level in the morning before his discharge tomorrow and he understood and agreed to proceed as is documented in this note. Mental Status Exam MSE Comments: This is a well-nourished well-developed white male with adequate dress, grooming and eye contact. No abnormal movements except for psychomotor agitation. Cooperative with exam in no acute distress. Speech was a little less pressured with increased rate and normal volume. Mood described as good, affect less elevated/manic. Thought process organized. Thought content: Patient denied any suicidal or homicidal ideations, there were no delusions reported noted, he denied any auditory or visual hallucinations. Attention and concentration are improving, memory appears reliable but none were formally tested. He is alert and oriented ?3. Insight and judgment are limited, but im proving. Vitals/I&O/Wt Last Vital Signs Temp 98.3 F 03/09/20 21:18 Pulse 72 03/09/20 21:18 Resp 21 H 03/09/20 21:18 BP 118/84 03/09/20 21:18 Pulse Ox 96 03/09/20 21:18 Data NPU : 03/06/20 20:20 03/06/20 20:20 A&P Additional A&P Information (1) Alcohol abuse: (2) ADHD: (3) Keri: (4) Bipolar 1 disorder, manic, moderate: This is a 54-year-old white male with a long history of ADHD, bipolar disorder and alcohol abuse with recent history of hospitalization with keri earlier this year presents at least 7 days off of his medication, manic and open to restarting his medications. 1. Restart his medications.Will increase [place] to 600 qam and 300 qhs. 2. Encourage individual, group and milieu therapy. 3. Continue every 15 minute checks for safety. 4. Encourage appropriate follow-up for mental health and sober living services. Involuntary Hold Information 96 Hour Hold: 96 Hour Involuntary Admission: No Attestations NPU Medical Necessity Statement*: Inpatient hospitalization is medically necessary and the clinically appropriate intervention at this time. We will restart his medications and adjust as indicated. Likely length of stay 1-3 days. Coding Level of Care Code Acute [facility] for Chiara Coffey
[2020-03-09] MEDS: lithium carbonate 300 mg Capsule PO (13:48)
[2020-03-09 14:00] VITALS: BP 135/93; PULSE 75; RESP 18; TEMP 36.4; O2SAT 96
[2020-03-09] MEDS: trazodone 50 mg Tablet PO (21:03)
[2020-03-09 21:18] VITALS: BP 118/84; PULSE 72; RESP 21; TEMP 36.8; O2SAT 96
[2020-03-10] MEDS: TRAMadol 50 mg Tablet PO (05:17)
[2020-03-10] MEDS: nicotine 2 mg Gum BUCCAL ×2 (05:18→10:03)
[2020-03-10] MEDS: acetaminophen 325 mg Tablet 650 MG PO (05:19)
[2020-03-10 06:00] VITALS: BP 129/83; PULSE 77; RESP 23; TEMP 36.9; O2SAT 96
[2020-03-10] MEDS: methylphenidate 10 mg Tablet 40 MG PO ×2 (08:04→12:11)
[2020-03-10] MEDS: folic acid 1 mg Tablet PO (08:05)
[2020-03-10] MEDS: lithium carbonate 150 mg Capsule 300 MG PO (08:05)
[2020-03-10] MEDS: thiamine 100 mg Tablet PO (08:05)
[2020-03-10] MEDS: clindamycin 150 mg Capsule 300 MG PO ×2 (08:05→14:02)
--- NOTE | 2020-03-10 08:24 | PC.NURSE ---
refused scheduled multivitamin, pt stated it leaves a weird taste in his mouth
[2020-03-10 08:53] LABS: Lithium 0.4 mmol/L (0.6-1.2)
--- NOTE | 2020-03-10 13:13 | PM.NDC ---
Diagnoses at Discharge Discharge Diagnosis (1) Alcohol abuse: Status: Acute (2) ADHD: Status: Acute Qualifiers: Attention deficit-hyperactivity disorder type: combined inattentive-hyperactive Qualified Code(s): F90.2 - Attention-deficit hyperactivity disorder, combined type (3) Keri: Status: Acute (4) Bipolar 1 disorder, manic, moderate: Status: Acute Reason for Visit Reason for Visit: Reason For Visit: mhe Brief History: History of Present Illness Denny Gleason is a 54 year old male who presented to the emergency room with rodolfo manic symptoms with hyperactivity, stream of consciousness, feeling impulsive and grandiose. He reports that he stopped taking his medication about a week or more ago. And when he realized he should probably start taking it is my started thinking of ways that he knew was dangerous and was fearful that he would hurt himself even if not intentionally. We reviewed his last evaluation from November and he denies any changes of any substantive amount. He reports he still connected with his girlfriend and that he was with her right before he stopped taking his medication. He reports that his family is very supportive but he unfortunately was being dishonest about whether or not he was taking his medication. He reports that he gets somewhat frustrated because he wants to be normal and he knows that he is not. Per last [facility] eval 11/22/19: History of Present Illness Denny Gleason is a 54 year old male who presented to the emergency department reporting that he needed to get restarted on his medication. There is some confusing talk about his ADHD and he'll needing his Adderall which was stopped but needed to be restarted. He was admitted to the neuropsych unit due to impulsivity, racing thoughts and inability to function in his current state. He reports he had been on lithium several months ago and stopped taking it but continued to take the Adderall. He reports that over the last several days he stopped taking the Adderall and is impulsivity even had gotten worse. He endorses that he couldn't sleep, he blew $12,000 in a casino in [place], he is getting strippers even though he has a girlfriend, and he is not able to settle his mind. He is very resistant to the idea that this is mainly but it is clearly so. We reviewed his evaluation from 2018 here at [facility] and that is included below. He endorsed that the information found therein was accurate. We discussed the risks benefits alternatives of getting him back on a mood stabilizer particularly the lithium that helped him in the past, and he understood and agreed to see as documented in his note. Of note he felt that at the really elevated dose that he was having a metallic taste in his mouth. It was unclear that he was getting regular or yearly lithium levels. Psychiatric history: He reports that the information below is accurate. He reports that he has had a few psychiatric hospitalizations in his life. Substance abuse history: He denies smoking cigarettes but does report that he does about a can of chew every 4 days. 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 He reports that he puts that she wanted the other side. He reports he has a beer occasionally but because of his hepatitis C he rarely does that. He denies marijuana or any other illicit drug. He denies any rehabs reports he had a DUI in college. Family history: He denies any contributory issues of mental health or addiction in his family no suicide attempts or completions. Psychosocial history: Please see below, but he does report being one of 7 children he is in the middle. His parents were together when he was born he reports he had a great childhood he graduated high school and college. He endorses being heterosexual with his longest relationship between 12 years. 1 time and 1 time. He never had children. Per 02/10/18 eval: [facility] Time in: 2:05pm Time out: 2:50pm CHIEF COMPLAINT: 'I'm here to get settled in on my meds' HISTORY OF PRESENT ILLNESS: Patient came for psych eval. He said he has been taking medications all his life and he is currently on medications which are controlling his symptoms. 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 He said his sleep is better with Seroquel. He said he takes the Seroquel around 9pm, sleeps around 9:30pm/ 9:40pm when he wakes up to use the restroom once or twice and wakes up finally around 7am/ 7:30am. He said in the past sometimes (when not on medications he would not sleep). He said when he is manic, he drives fast, always on the go, rapid speech, gambles, making poor decisions and is easily distractible. He said he has been up for 72 hours without sleep. He said his family refer to him as a compulsive spender. Modified from mental health assessment dated 02/03/18: reports a persistent pattern of inattention and/or hyperactivity-impulsivity that interferes with function as characterized by often fails to pay attention to details, difficulty sustaining attention in tasks, and is often easily distracted by extraneous stimuli. Reports often fidgets and squirms in seat, feeling restless, unable to engage in leisure activities, often on the go, and often talks excessively. My problem is concentrating, focusing on anything, watching a tv or going the drive-in. I fidget a lot.? I am always on the go and have rapid speech. Several inattentive or hyperactive-impulsive symptoms were present prior to age 11 years. Several inattentive or hyperactive-impulse symptoms are present at home and school. Modified from mental health assessment dated 02/03/18: ATTENTION-DEFICIT/HYPERACTIVITY DISORDER CRITERIA: reports a persistent pattern of inattention and/or hyperactivity-impulsivity that interferes with function as characterized by often fails to pay attention to details, difficulty sustaining attention in tasks, and is often easily distracted by extraneous stimuli. Reports often fidgets and squirms in seat, feeling restless, unable to engage in leisure activities, often on the go, and often talks excessively. My problem is concentrating, focusing on anything, watching a tv or going the drive-in. I fidget a lot.? I am always on the go and have rapid speech. Several inattentive or hyperactive-impulsive symptoms were present prior to age 11 years. Several inattentive or hyperactive-impulse symptoms are present at home and school. Patient denied symptoms suggestive of psychosis. Patient requested to go the [facility] ([facility]) to have his lab test done. PAST PSYCHIATRIC HISTORY: -Medication trials include Depakote (made him feel sluggish), weight gain, Ritalin (helped him but he stopped taking it for unclear reasons). -Patient said he was admitted twice in 1 month. He said he initially lied to them and told them he would take his medications but he did not and ended up in hospital again. -Patient denied suicide attempt. -Patient said he was diagnosed with ADHD and Bipolar in the past. FAMILY MEDICAL HISTORY: Family Psychiatric History: None Reported Substance Use within Family: None Reported History of Suicide in Family: No PAST MEDICAL HISTORY: Cancer (jaw cancer), Surgical Procedure (kidney stone, appendix, jaw, left knee) MEDICATION LIST: -Mcewen carb 150mg, take 3 capsules PO bid -Adderall XR 10mg, 2 capsules PO q am. -Seroquel 100mg PO qhs -Hydroxyzine 50mg PO qhs -Prazosin 1 mg PO qhs. SUBSTANCE ABUSE HISTORY: Patient denied. SOCIAL HISTORY: Patient was born in [place], [place] was raised by parents along 5 brothers and 1 sister. He said he was diagnosed with ADHD and bipolar in college. He said he graduated from [employer] and has an bachelors in [employer]. He said he twice, is currently and has no children due to a baseball injury. Hospital Course Hospital Course Denny presented to the emergency room endorsing some thoughts to harm himself, being upset with himself because he stopped taking his medication for about week endorsing manic symptoms and fear that things were getting worse. He was admitted to the neuropsychiatric unit for definitive treatment for those issues. His medications were restarted without incident with improvement. During the hospitalization he had routine laboratory studies which were within normal limits except for a few outliers. Additionally he had a general medical evaluation was also within normal limits revealed no new acute processes. Discharge Summary At the time of discharge he denied all lethality, he was absent psychosis and endorse a plan to follow-up with outpatient services, take his medication and avoid all drugs of abuse. He was evaluated and deemed to be absent compatible lethality and had achieved maximum benefit from an inpatient hospitalization so he was discharged. Involuntary Hold Information 96 Hour Hold: 96 Hour Involuntary Admission: No Mental Status Exam MSE Comments: This is a well-nourished well-developed white male with adequate dress, grooming and eye contact. No abnormal movements except for significantly improved psychomotor agitation. Cooperative with exam in no acute distress. Speech was a less pressured with increased rate and normal volume. Mood described as good, affect less elevated/manic. Thought process organized. Thought content: Patient denied any suicidal or homicidal ideations, there were no delusions reported noted, he denied any auditory or visual hallucinations. Attention and concentration are improving, memory appears reliable but none were formally tested. He is alert and oriented ?3. Insight and judgment are improving. Discharge Data Data Completed and Pending: Labs from last 24 hours 03/10/20 07:19 Mcewen 0.4 L Vitals: Last Vital Signs Temp 98.5 F 03/10/20 06:00 Pulse 77 03/10/20 06:00 Resp 23 H 03/10/20 06:00 BP 129/83 03/10/20 06:00 Pulse Ox 96 03/10/20 06:00 Discharge Plan Discharge Patient Disposition: Home, Self-Care Condition: Stable Prescriptions: New trazodone 50 mg Tablet 50 mg PO BEDTIME PRN (Reason: Sleep) 30 Days Qty: 30 RF: 1 lithium carbonate 150 mg Capsule 300 mg PO BID 30 Days Qty: 120 RF: 1 tramadol 50 mg Tablet 50 mg PO BID PRN (Reason: Breakthrough Pain) 30 Days Qty: 14 RF: 0 lithium carbonate 300 mg Capsule 300 mg PO QAM 30 Days Qty: 30 RF: 1 Continued ketorolac 30 mg/mL solution 30 mg IM ONCE Qty: 2 RF: 0 Mavyret 100-40 mg tablet 3 tab PO DAILY RF: 0 butalbital-acetaminophen 50-300 mg Tablet 1 tab PO DAILY Qty: 30 RF: 0 clindamycin HCl capsule 300 mg PO TID RF: 0 Fioricet tablet 50 mg PO QID PRN (Reason: Migraine Headache) RF: 0 Adderall 20 mg tablet 20 mg PO BID 13 Days Qty: 26 RF: 0 Discontinued lithium carbonate 150 mg capsule 150 mg PO BID RF: 0 Discharge Orders: Discharge Order (Routine); Ordered 03/10/20 Ordered By: [place] Referrals: Dior Campos MD [Physician] - 03/23/20 9:00 am () Discharge Diet: Regular Discharge Activity: Resume usual activity Discharge Date/Time: 03/10/20 14:15 Discharge Attestations NPU Time Spent in Discharge Care*: less than 30 min Specific Discharge Activities: Specific discharge activities: educating patient, discussing with family service caseworker/social workers/dc planners, documenting/other paperwork and evaluating patient/reviewing data Coding Level of Care Code Acute Feeder Tender for g Fwd Diagnoses Alcohol abuse F10.10 ADHD F90.2 Attention deficit-hyperactivity disorder type: combined inattentive-hyperactive Keri F30.9 Bipolar 1 disorder, manic, moderate F31.12
[2020-03-10 13:22] VITALS: BP 129/83; PULSE 77; RESP 23; TEMP 36.9; O2SAT 96
== END 2020-03-10 14:15 | disposition home or self-care (01) | DRG 885 ==
LOC: ER 19:43 → NP 22:02
PROVIDERS: Emergency Medicine; Admitting Provider Psychiatry & Neurology Psychiatry; PCP Family Medicine; Visit Provider Psychiatry & Neurology Psychiatry
DX: F31.9 Bipolar disorder, unspecified (principal); R45.851 Suicidal ideations; Z91.128 Patient's intentional underdosing of medication regimen for other reason; F90.2 Attention-deficit hyperactivity disorder, combined type; F17.220 Nicotine dependence, chewing tobacco, uncomplicated; B19.20 Unspecified viral hepatitis C without hepatic coma; Z85.818 Personal history of malignant neoplasm of other sites of lip, oral cavity, and pharynx; F10.10 Alcohol abuse, uncomplicated
CPT/HCPCS: 12345; 36415; 80053; 80178; 80306; 80307; 81001; 84443; 85025; 99284

== ENCOUNTER 2020-05-05 18:41 | Emergency (ER) | payer OTHER, SELFPAY ==
[2020-05-05 18:58] VITALS: BP 113/75; PULSE 105; RESP 18; TEMP 36.5; O2SAT 94; BMI 23.9
--- NOTE | 2020-05-05 19:02 | XRR_ITS ---
PROCEDURE INFORMATION: Exam: XR Left Ankle Exam date and time: 05/05/2020 7:34 PM Age: 54 years old Clinical indication: Injury or trauma; Initial encounter; Blunt trauma; Injury date: 05-05-20; Injury details: Injured ankle jumping, unable to bear weight; Patient HX: Injured left ankle jumping, unable to bear weight; Additional info: Left ankle injury TECHNIQUE: Imaging protocol: XR Left ankle. Views: 3 or more views. COMPARISON: No relevant prior studies available. FINDINGS: Bones/joints: Potential minimally displaced avulsion fracture lateral talar tubercle visualized only on the AP view. Soft tissues: Soft tissue swelling. XR/XR ankle LT min 3V* [id number] IMPRESSION: Potential minimally displaced avulsion fracture lateral talar tubercle
[2020-05-05 19:04] VITALS: PULSE 105
--- NOTE | 2020-05-05 19:09 | W.ED.EXTPRO ---
HPI - Extremity Problem General: Chief complaint: Extremity Injury, Lower Stated complaint: ankle pain Time Seen by Provider: 05/05/20 19:00 Source: patient Mode of arrival: ambulatory Limitations: no limitations History of Present Illness: HPI Narrative: 54-year-old male patient comes in today with injury to the left ankle. Patient reports he was getting off his tractor when he landed wrong on his ankle causing it to twist. Patient reports it was an L-shaped he straightened out and then came into the emergency department for further evaluation. Patient appears in moderate to severe pain. Patient appears well. MD Complaint: extremity pain and extremity swelling Review of Systems General: Reports: 10 or more systems reviewed and unremarkable except in HPI and below Musc: Reports: joint pain PFSH ED PFSH: Social History Smoking and tobacco status: current every day smoker smokeless tobacco Smokeless tobacco user: chewing tobacco Smokeless tobacco details: 1 can every 4 days Quit status (tobacco): considering quitting Second hand smoke exposure: No Physical Exam Const: COMMON NORMALS: no acute distress and patient oriented x3 GENERAL APPEARANCE: cooperative HENMT: COMMON NORMALS: normocephalic and Normal external nose present HEAD & SCALP: normal to inspection and normocephalic NOSE: Normal external nose present MOUTH: Normal oral and palatal mucosa present THROAT: posterior oropharynx normal Eye: GENERAL EYE: appearance normal, both eyes and all related structures Neck/C-Spine: COMMON NORMALS: full ROM Lymph: LYMPHATIC: no lymphadenopathy noted Chest: COMMONS NORMALS: normal inspection of the chest Resp: COMMON NORMALS: normal respiratory effort EFFORT & INSPECTION: Yes able to speak in complete sentences Cardio: COMMON NORMALS: regular rate and regular rhythm RATE: regular rate RHYTHM: regular rhythm GI: COMMON NORMALS: non-tender Back/Pelvis: COMMON NORMALS: thoracic and lumbar spine normal to inspection Extremity: NARRATIVE EXTREMITY EXAM: Significant swelling is noted to the left ankle area. Pulses are intact. Skin shows prompt capillary refill and warmth. Neuro: COMMON NORMALS: patient oriented x3 and moves all extremities Psych: COMMON NORMALS: mental status grossly normal and cooperative Skin: COMMON NORMALS: no rashes or lesions noted GENERAL SKIN EXAM: no rashes or lesions noted Course Vital Signs: Vital signs: Vital Signs Temperature 97.7 F 07/24/20 18:58 Pulse Rate 95 05/05/20 19:11 Respiratory Rate 18 05/05/20 19:26 Blood Pressure 102/74 05/05/20 19:11 Pulse Oximetry 95 05/05/20 19:26 MDM - Extremity (Nontraumatic) MDM Narrative: Medical decision making narrative: Patient comes in for injury to the left ankle. On exam we note swelling and tenderness to the ankle. Positive pulses and prompt capillary refill was also noted. Differential diagnosis includes dislocation, fracture, sprain. X-ray noted to the avulsion fracture of the talus of the left foot. Patient was placed in a stirrup splint and crutches for ambulation. Patient was recommended to follow-up with orthopedics or podiatry for further treatment and evaluation. Patient reports understanding. Discharge Plan Discharge Patient Disposition: Home Clinical Impression: Ankle fracture Qualifiers: Encounter type: initial encounter Fracture type: closed Laterality: left Qualified Code(s): S82.892A - Other fracture of left lower leg, initial encounter for closed fracture Condition: Stable Prescriptions: New hydrocodone-acetaminophen 5-325 mg tablet 1 tab PO Q6H PRN (Reason: pain (scale score 7-10)) Qty: 10 RF: 0 No Action lithium carbonate 300 mg capsule 300 mg PO TID 30 Days Qty: 90 RF: 3 ketorolac 30 mg/mL solution 30 mg IM ONCE Qty: 2 RF: 0 Mavyret 100-40 mg tablet 3 tab PO DAILY RF: 0 dextroamphetamine-amphetamine [Adderall] 10 mg tablet 10 mg PO DAILY 30 Days Qty: 30 RF: 0 dextroamphetamine-amphetamine [Adderall] 15 mg tablet 15 mg PO DAILY 30 Days Qty: 30 RF: 0 butalbital-acetaminophen 50-300 mg Tablet 1 tab PO DAILY Qty: 30 RF: 0 clindamycin HCl capsule 300 mg PO TID RF: 0 Fioricet tablet 50 mg PO QID PRN (Reason: Migraine Headache) RF: 0 trazodone 50 mg Tablet 50 mg PO BEDTIME PRN (Reason: Sleep) 30 Days Qty: 30 RF: 1 lithium carbonate 150 mg Capsule 300 mg PO BID 30 Days Qty: 120 RF: 1 Discharge Orders: Discharge Order (Routine); Ordered 05/05/20 Ordered By: Avni Reyes Referrals: Dior Campos MD [Primary Care Provider] - Discharge Diet: Usual diet Discharge Activity: Increase activity as tolerated Patient Instructions: Ankle Fracture (ED) Activity Restrictions/Additional Instructions: Wear stirrup splint. Use crutches until he can bear weight comfortably. Use acetaminophen and ibuprofen for pain control. Use hydrocodone for breakthrough pain or severe pain. Follow-up with primary care as needed. Follow-up with orthopedics for further treatment and evaluation. Case management will contact you with orthopedic follow-up appointment or you may contact the orthopedist of your choice. Coding Level of Care Code ED Training Executive for Chiara Fwd Exam Comprehensive
[2020-05-05 19:11] VITALS: BP 102/74; PULSE 95; RESP 18; O2SAT 98
[2020-05-05 19:26] VITALS: RESP 18; O2SAT 95
[2020-05-05] MEDS: HYDROmorphone 1 mg/mL INJ 1 mL IVP (19:26)
[2020-05-05] MEDS: ondansetron 2 mg/ML SDV 2 mL 4 MG IVP (19:26)
[2020-05-05] MEDS: ketorolac 30 mg/mL INJ 15 MG IVP (20:25)
[2020-05-05] MEDS: HYDROcodone-acetaminophen 7.5-325 mg Tablet 1 TAB PO (20:25)
[2020-05-05 20:33] VITALS: BP 111/72; PULSE 90; RESP 14; O2SAT 94
--- NOTE | 2020-05-08 10:11 | PC.SOCIAL ---
Spoke with Pat at [facility] regarding referral. She will have provider review and either call patient with appt or let this nurse know if unable to be scheduled.
--- NOTE | 2020-05-18 14:52 | DCPLANNER ---
Per Pat at ortho, patient is to follow up with primary care provider, if still in pain or feels like a referral to ortho is still needed, patient can have primary care refer patient to ortho. Clinic called patient and informed patient of this.
== END 2020-05-05 20:39 | disposition home or self-care (01) ==
PROVIDERS: Emergency Provider Nurse Practitioner Family; PCP Family Medicine
DX: S92.152A Displaced avulsion fracture (chip fracture) of left talus, initial encounter for closed fracture (principal); X50.1XXA Overexertion from prolonged static or awkward postures, initial encounter; F17.210 Nicotine dependence, cigarettes, uncomplicated
CPT/HCPCS: 12345; 29515; 73610; 96374; 96375; 99283; E0114; J1170; J1885; J2405

== ENCOUNTER 2020-05-07 09:45 | Emergency (ER) | payer OTHER, SELFPAY ==
[2020-05-07 09:58] VITALS: BMI 23.9
[2020-05-07 10:01] VITALS: BP 122/73; PULSE 93; RESP 16; TEMP 36.8; O2SAT 98
--- NOTE | 2020-05-07 10:20 | XRR_ITS ---
PROCEDURE INFORMATION: Exam: XR Left Foot Exam date and time: 05/07/2020 10:22 AM Age: 54 years old Clinical indication: Injury or trauma; Fall; Follow-up exam; Blunt trauma; Foot; Left; Additional info: Previous trauma-removed splint and has been walking on it TECHNIQUE: Imaging protocol: XR Left foot. Views: 1 or 2 views. COMPARISON: CR XR ankle LT min 3V* [id number] 05/05/2020 7:24 PM FINDINGS: Bones/joints: No evidence of fracture or dislocation. Soft tissues: Normal. Vasculature: Incidental arterial calcifications. XR/XR foot LT 2V [id number] IMPRESSION: No acute findings
--- NOTE | 2020-05-07 10:22 | ED_ITS ---
HPI - Extremity Problem General: Chief complaint: Extremity Injury, Lower Stated complaint: L FOOT INJURY Time Seen by Provider: 05/07/20 09:49 Source: patient Mode of arrival: ambulatory Limitations: no limitations History of Present Illness: HPI Narrative: pt states increased pain since dx of fx on the left foot 2 days ago MD Complaint: extremity pain and extremity swelling Location: left and lower extremity Severity scale (1-10): 10 Review of Systems General: Reports: 10 or more systems reviewed and unremarkable except in HPI and below Musc: Reports: extremity pain (left foot ), extremity swelling and limited range of motion PFS ED PFSH: Social History Smoking and tobacco status: current every day smoker smokeless tobacco Smokeless tobacco user: chewing tobacco Smokeless tobacco details: 1 can every 4 days Quit status (tobacco): considering quitting Second hand smoke exposure: No Physical Exam Const: COMMON NORMALS: no acute distress, patient oriented x3, no limitations and alert GENERAL APPEARANCE: cooperative and comfortable ORIENTATION/CONSCIOUSNESS: Yes awake, Yes oriented to person, Yes oriented to place and Yes oriented to time HENMT: COMMON NORMALS: normocephalic, atraumatic, external ears normal, EAC's normal, TM's normal bilaterally and Normal external nose present HEAD & S CALP: normal to inspection, normocephalic and atraumatic FACE & SINUS: normal facial exam, sinuses nontender and face symmetric NOSE: Normal external nose present, Normal nares present and No nasal discharge present EXTERNAL EAR: Yes external ears normal EXTERNAL AUDITORY CANAL: EAC's normal TYMPANIC MEMBRANE: TM's normal bilaterally MOUTH: Normal oral and palatal mucosa present, lip normal and tongue normal THROAT: posterior oropharynx normal, tonsils normal and uvula midline Eye: COMMON NORMALS: Equal, round and reactive pupils present, EOMs intact bilaterally and conjunctivae normal GENERAL EYE: appearance normal, both eyes and all related structures and normal light reflex EYELID: eyelids normal CONJUNCTIVA: Yes conjunctivae normal PUPIL: Yes Equal, round and reactive pupils present EOM: Yes EOM abnormal DIRECT OPHTHALMOSCOPY: Yes normal light reflex Neck/C-Spine: COMMON NORMALS: full ROM, no lymphadenopathy, supple, no meningeal signs, no JVD and Thyroid normal GENERAL: Yes normal visual inspection THYROID: Thyroid normal CERVICAL SPINE: Yes cervical ROM normal and Yes normal cervical lordosis Lymph: LYMPHATIC: no lymphadenopathy noted Chest: COMMONS NORMALS: normal inspection of the chest and normal palpation of entire chest wall Resp: COMMON NORMALS: normal respiratory effort, No retractions and clear to auscultation bilaterally AUSCULTATION: clear to auscultation bilaterally Cardio: COMMON NORMALS: no JVD, regular rate, regular rhythm, S1 normal heart sound present, S2 normal heart sound present, No gallops present (Cardio), No clicks present (Cardio), No murmurs present (Cardio), No rub (Cardio) and Peripheral pulses 2+ throughout RATE: regular rate RHYTHM: regular rhythm HEART SOUNDS: S1 normal heart sound present and S2 normal heart sound present PERIPHERAL PULSES: Peripheral pulses 2+ throughout GI: COMMON NORMALS: Normal to inspection, nondistended, normoactive bowel sounds present, Soft to palpation, non-tender and no masses PALPATION: Yes Soft to palpation : COMMON NORMALS: Yes no CVA tenderness BLADDER/KIDNEY EXAM: Yes no CVA tenderness Back/Pelvis: COMMON NORMALS: no CVA tenderness, thoracic and lumbar spine normal to inspection, no thoracic nor lumbar tenderness and thoraco-lumbar ROM normal Extremity: COMMON NORMALS: normal to inspection, full ROM, capillary refill normal, no joint enlargement, no clubbing, cyanosis or edema, no calf tenderness and no pedal edema GENERAL: Yes normal exam except as noted LEFT LOWER EXTREMITY: Yes foot & digits (large amount of bruising, mild swelling to medial aspect of foot) Left foot and digits: Yes inspection (mild swelling), Yes palpation (pain) and Yes ROM (limited ) Neuro: COMMON NORMALS: patient oriented x3, moves all extremities, no focal motor deficits, no sensory deficits noted and gait normal SENSORIUM/ORIENTATION: Yes alert, Yes oriented to person, Yes oriented to place and Yes oriented to time MENINGEAL SIGNS: Yes no meningeal signs Psych: COMMON NORMALS: mental status grossly normal, Normal thought process present, cooperative, normal affect, speech normal and activity/motor behavior normal SPEECH: Yes normal speech THOUGHT PROCESS: Normal thought process present Skin: COMMON NORMALS: no rashes or lesions noted, no wounds and turgor normal GENERAL SKIN EXAM: no rashes or lesions noted and turgor normal Course ED course: Pt presents to ER after being seen 2 days ago and dx with fx of the left foot. He has removed his splint and states that the pain medication only helps for a short time. He has been walking on it without splint per family and has been up. Will repeat xray. Reevaluation(s): Reevaluation #1: No acute findings; pt needs to implement RICE therapy and NSAIDs. Will no be able to fill narcotic script as he has used his last fill in two days. Family also notes concern about misuse. Will have splint placed for comfort and follow up with PCP next week. Time: 11:14 Vital Signs: Vital signs: Vital Signs Temperature 98.2 F 05/07/20 10:01 Pulse Rate 93 05/07/20 10:01 Respiratory Rate 16 05/07/20 10:01 Blood Pressure 122/73 05/07/20 10:01 Pulse Oximetry 98 05/07/20 10:01 MDM - Extremity (Nontraumatic) Imaging Data^: Other Xray: Radiologist's impression: [address] [place] [address] XRay Report Signed Patient: Denny Gleason Unit #: [id number] : 1965 Age/Sex: 54 / M ADM Date: 05/07/20 Loc: ER Room/Bed: Attending Dr: Ordering Provider/Ordering MD: Kasey Feliciano NP Date of Service: 05/07/20 Procedure(s): XR foot LT 2V 96151 Accession Number(s): [id number] Report Number: [id number] PROCEDURE INFORMATION: Exam: XR Left Foot Exam date and time: 05/07/2020 10:22 AM Age: 54 years old Clinical indication: Injury or trauma; Fall; Follow-up exam; Blunt trauma; Foot; Left; Additional info: Previous trauma-removed splint and has been walking on it TECHNIQUE: Imaging protocol: XR Left foot. Views: 1 or 2 views. COMPARISON: CR XR ankle LT min 3V* [id number] 05/05/2020 7:24 PM FINDINGS: Bones/joints: No evidence of fracture or dislocation. Soft tissues: Normal. Vasculature: Incidental arterial calcifications. XR/XR foot LT 2V [id number] IMPRESSION: No acute findings Dictated By: Carlos Alberto Vasquez MD Signed By: Carlos Alberto Vasquez MD Signed Date/Time: 05/07/201108 DD/ Discharge Plan Discharge Patient Disposition: Home Clinical Impression: Ankle sprain and strain Condition: Stable Prescriptions: No Action lithium carbonate 300 mg capsule 300 mg PO TID 30 Days Qty: 90 RF: 3 ketorolac 30 mg/mL solution 30 mg IM ONCE Qty: 2 RF: 0 Mavyret 100-40 mg tablet 3 tab PO DAILY RF: 0 dextroamphetamine-amphetamine [Adderall] 10 mg tablet 10 mg PO DAILY 30 Days Qty: 30 RF: 0 dextroamphetamine-amphetamine [Adderall] 15 mg tablet 15 mg PO DAILY 30 Days Qty: 30 RF: 0 hydrocodone-acetaminophen 5-325 mg tablet 1 tab PO Q6H PRN (Reason: pain (scale score 7-10)) Qty: 10 RF: 0 butalbital-acetaminophen 50-300 mg Tablet 1 tab PO DAILY Qty: 30 RF: 0 clindamycin HCl capsule 300 mg PO TID RF: 0 Fioricet tablet 50 mg PO QID PRN (Reason: Migraine Headache) RF: 0 trazodone 50 mg Tablet 50 mg PO BEDTIME PRN (Reason: Sleep) 30 Days Qty: 30 RF: 1 lithium carbonate 150 mg Capsule 300 mg PO BID 30 Days Qty: 120 RF: 1 Referrals: Dior Campos MD [Primary Care Provider] - Discharge Diet: Usual diet Discharge Activity: Increase activity as tolerated and Use walker/crutches as instructed Activity Restrictions/Additional Instructions: Follow up with PCP as previously ordered. Non weight bearing until cleared. Coding Level of Care Code ED Drill Press Set Up Operator for Linusg Fwd Exam Comprehensive
[2020-05-07] MEDS: HYDROcodone-acetaminophen 5-325 mg Tablet 1 TAB PO (10:29)
--- NOTE | 2020-05-07 10:35 | PC.NURSE ---
Patients brother asked to speak to nurse in the [facility] while during patients bedside xray, brother stated that the patient has a long history of drug abuse including pain medications and that the patient only has 2 hydrocodone from [facility].
--- NOTE | 2020-05-10 14:18 | PC.SOCIAL ---
Call received from Pat at Ortho. Per provider nothing acute that requires ortho at this time recommend follow up with PCP. Called patient to discuss and offered to make appt with PCP Dr Campos. Patient indicates he saw Dr Campos yesterday and they will refer him to Dr Glez. No further needs voiced.
== END 2020-05-07 11:42 | disposition home or self-care (01) ==
PROVIDERS: Emergency Provider Nurse Practitioner Family; PCP Family Medicine
DX: S93.402A Sprain of unspecified ligament of left ankle, initial encounter (principal); S96.912A Strain of unspecified muscle and tendon at ankle and foot level, left foot, initial encounter; F17.210 Nicotine dependence, cigarettes, uncomplicated; X58.XXXA Exposure to other specified factors, initial encounter
CPT/HCPCS: 12345; 29515; 73620; 99281; 99283

== ENCOUNTER → 2020-05-31 14:40 | Outpatient (BNVA) | payer OTHER, SELFPAY | PROVIDERS: PCP Family Medicine; Visit Provider Podiatrist Foot & Ankle Surgery | DX: S82.899D Other fracture of unspecified lower leg, subsequent encounter for closed fracture with routine healing (principal); X50.1XXD Overexertion from prolonged static or awkward postures, subsequent encounter | CPT/HCPCS: 73610 ==

== ENCOUNTER → 2020-06-15 12:50 | Outpatient (BNVA) | payer OTHER, SELFPAY | PROVIDERS: PCP Family Medicine; Visit Provider Podiatrist Foot & Ankle Surgery | DX: S82.892A Other fracture of left lower leg, initial encounter for closed fracture (principal); X58.XXXA Exposure to other specified factors, initial encounter | CPT/HCPCS: 73610 ==

== ENCOUNTER 2020-06-29 15:56 | Outpatient (CLI) | payer OTHER, SELFPAY | END 2020-06-29 15:57 | disposition home or self-care (01) | LOC: SPT 15:56 | PROVIDERS: PCP Family Medicine; Visit Provider Podiatrist Foot & Ankle Surgery | DX: Z46.89 Encounter for fitting and adjustment of other specified devices (principal); S82.892D Other fracture of left lower leg, subsequent encounter for closed fracture with routine healing; X58.XXXD Exposure to other specified factors, subsequent encounter | CPT/HCPCS: 97760; L1902 ==

== ENCOUNTER 2020-08-11 10:49 | Outpatient (CLI) | payer OTHER, SELFPAY ==
--- NOTE | 2020-08-11 10:55 | MR_ITS ---
WS: [id number] Exam: MR ankle LT wo con* [id number] Date/Time of Exam: 08/11/2020 11:04 AM Reason For Exam: ACHILLES TENDON PAIN The ankle is evaluated in the sagittal, axial and coronal planes with multiple imaging sequences. There is extensive bone marrow edema in the talus. There is some signal loss identified in the superi or medial aspect of the talar dome. Early osteonecrosis is not excluded. There is also diffuse bone m arrow edema in the calcaneus particularly in the lateral aspect of the calcaneus. The Achilles tendon appears normal. The plantar aponeurosis is normal in contour and signal. Moderate joint effusion is noted. There is marked soft tissue edema along the lateral aspect of the talus in the region of the p eroneus tendon sheath. The peroneus tendons and the tibialis tendons are intact. The ligamentous supp orting structures about the ankle are intact. There is a bone fragment identified best on the sagitta l images in the region of the subtalar joint. This may represent a fracture fragment from the talus o r the calcaneus. A donor site is not definitely seen. There is degenerative change with subchondral b one erosions along the posterior facet of the calcaneus. Recommendations: CT scanning of the foot could be helpful in further workup if felt to be clinically warranted. MR/MR ankle LT wo con* [id number] IMPRESSION: 1. Bone fragment identified on sagittal images in the region of the subtalar dontae int. This could represent a fracture from the calcaneus or the talus. A donor s ite isn't definitely seen. 2. Bone marrow edema in the talus. There is some loss of signal noted in the ramirez perior medial corner of the talus that might indicate early osteonecrosis. Ther e is also bone marrow edema in the calcaneus. 3. No acute tendon or ligamentous injury. 4. Small volume joint effusion. 5. Marked focal soft tissue swelling along the lateral aspect of the calcaneus in the region of the peroneus tendon sheath.
== END 2020-08-11 10:50 | disposition home or self-care (01) ==
LOC: RADSHAW 10:51
PROVIDERS: PCP Family Medicine; Visit Provider Family Medicine
DX: M76.62 Achilles tendinitis, left leg (principal); R60.0 Localized edema; M25.472 Effusion, left ankle; M79.89 Other specified soft tissue disorders
CPT/HCPCS: 73721

== ENCOUNTER 2020-08-24 11:45 | Outpatient (CLI) | payer OTHER, SELFPAY | END 2020-08-24 11:46 | disposition home or self-care (01) | LOC: SPT 11:46 | PROVIDERS: PCP Family Medicine; Visit Provider Podiatrist Foot & Ankle Surgery | DX: R93.7 Abnormal findings on diagnostic imaging of other parts of musculoskeletal system (principal) | CPT/HCPCS: 97760; L4361 ==

== ENCOUNTER → 2020-09-14 13:59 | Outpatient (BNVA) | payer OTHER, SELFPAY | PROVIDERS: PCP Family Medicine; Visit Provider Podiatrist Foot & Ankle Surgery | DX: M76.60 Achilles tendinitis, unspecified leg (principal) | CPT/HCPCS: 73610 ==

== ENCOUNTER → 2020-10-19 12:03 | Outpatient (BNVA) | payer OTHER, SELFPAY | PROVIDERS: PCP Family Medicine; Visit Provider Family Medicine | DX: N20.0 Calculus of kidney (principal); R30.0 Dysuria | CPT/HCPCS: 81003 ==

== ENCOUNTER → 2020-10-23 13:41 | Outpatient (BNVA) | payer OTHER, SELFPAY | PROVIDERS: PCP Family Medicine; Visit Provider Podiatrist Foot & Ankle Surgery | DX: S82.892D Other fracture of left lower leg, subsequent encounter for closed fracture with routine healing (principal); M76.60 Achilles tendinitis, unspecified leg; S82.899A Other fracture of unspecified lower leg, initial encounter for closed fracture | CPT/HCPCS: 73600; 73630 ==

== ENCOUNTER → 2020-10-30 13:07 | Outpatient (BNVA) | payer OTHER, SELFPAY | PROVIDERS: PCP Family Medicine; Visit Provider Podiatrist Foot & Ankle Surgery | DX: Z01.812 Encounter for preprocedural laboratory examination (principal); Z20.828 Contact with and (suspected) exposure to other viral communicable diseases | CPT/HCPCS: 87635 ==

== ENCOUNTER 2020-11-03 07:13 | Day surgery (SDC) | payer OTHER, SELFPAY ==
[2020-11-02 14:43] VITALS: BMI 24.3
[2020-11-03] VITALS (9 sets, daily range): BP systolic 112–142; BP diastolic 77–106; PULSE 85–114; RESP 16–28; TEMP 36.2–36.6; O2SAT 93–100
--- NOTE | 2020-11-03 | SCC_ITS ---
Procedure Done: Open reduction internal fixation left talus frature CPT code 73290 17 seconds of fluoroscopic guidance, for a cumulative dose of 0.395 mGy, was provided to Dr. Sánchez by the radiology department. C-arm images of the LEFT ankle were saved for the patient's permanent record. [facility]
--- NOTE | 2020-11-03 06:10 | W.PM.OPSUD ---
Surgery/Procedure H&P Update DATE OF PROCEDURE: November 03, 2020 DATE H&P PERFORMED: 10/23/20 H&P UPDATE INFORMATION: I have reviewed H&P completed within last 30 days, I have examined patient prior to procedure, No changes to prior documentation and H&P is in [facility] EMR on date indicated PREOP DIAGNOSIS: Left talus fracture. Left lateral ankle instability PLANNED PROCEDURE: Operation Date: 11/03/20 09:30 Proposed Procedures p ORIF left talus frature and modified brostrom left ankle, 83114 79181 S92.122G S82.892d(Left) - Wesly Sánchez DPM
[2020-11-03] MEDS: sodium chloride 0.9% 1,000 ML 30 ML IV (07:47)
[2020-11-03] MEDS: midazolam 1 mg/mL INJ 2 mL 2 MG IVP (07:55)
--- NOTE | 2020-11-03 08:15 | ANES.PREANE2 ---
Pre-Anesthetic Assessment Pre-Anesthetic Assessment: Height/Weight: Height 1.75 m Weight 74.843 kg Temp Pulse Resp BP Pulse Ox 97.8 F 85 18 133/83 98 11/03/20 07:28 11/03/20 07:28 11/03/20 07:28 11/03/20 07:28 11/03/20 07:28 Preop Diagnosis: Left talar fracture and left lateral ankle instability Proposed Procedure: Operation Date: 11/03/20 09:30 Proposed Procedures p ORIF left talus frature and modified brostrom left ankle, 12886 83979 S92.122G S82.892d(Left) - Wesly Sánchez DPM Familial anesthetic complications: None Was Beta Herve taken within 24 hours: N/A Last intake: Intake Last Liquid Date 11/02/20 Last Liquid Time 21:30 Last Solid Date 11/02/20 Last Solid Time 20:00 Social: Social History: Tobacco and No alcohol Comment: chews Exam: Pre-Anes Outpt Exam: alert, oriented x 3, clear to auscultation bilaterally and regular rate & rhythm Airway: Cervical ROM: WNL MP: 3 Dentition: Chipped and Partials Anesthetic Plan: ASA status: 1 Anesthesia: General and Regional (specify below) (popliteal) Risk of > 500 ml blood loss (7ml/kg in children): No Meds/Allergies Current Medications: Current Medications Generic Name Dose Route Start Last Admin Trade Name Freq PRN Reason Stop Dose Admin Sodium Chloride 1,000 mls @ 30 ml s/hr 11/03/20 07:30 11/03/20 07:47 Sodium Chloride 0.9% IV 11/04/20 07:29 30 mls/hr .Q24H LAURA Administration PFSH Anesthesia PFSH: Medical History ADHD Alcohol abuse Bipolar 1 disorder, manic, moderate Keri Social History Smoking and tobacco status: current every day smoker smokeless tobacco Smokeless tobacco user: chewing tobacco Smokeless tobacco details: 1 can every 4 days Quit status (tobacco): considering quitting Second hand smoke exposure: No Data Anesthesia Cardiac Studies: No Data to Display
--- NOTE | 2020-11-03 08:16 | ANES.PROC ---
Anesthesia Procedures Procedure/Date: 11/03/20 Nerve Block ^: Nerve Block 1: Main Anesthesia: general anesthesia Time Out Performed: Yes Consent: requested by attending/covering physician, from patient, risks and benefits reviewed and patient agrees to proceed Nerve block location: popliteal (L) Anesthesia monitors applied: pulse oximetry, EKG, BP cuff and oxygen Anesthetic Used: ropivicaine 0.5% and with decadron (4 mg) Amount of anesthesia used (mL): 30 Ultrasound used to: recognize landmarks Nerve Stimulator Used?: No Interscalene/Femoral BLK: 4 stimuplex 21 g needle used for position and inplane approach, visualize local anesthetic spread and no vascular puncture identified Injection: neg aspiration of heme Patient Tolerated Procedure: well and no complications Complications: none
[2020-11-03] MEDS: lidocaine 1% INJ 20 mL IM (10:44)
--- NOTE | 2020-11-03 11:42 | XR_ITS ---
WS: [id number] Left ankle, 3 views, 11/03/2020 Clinical Data: post op Comparison: Left ankle, 10/23/2020. Findings: There is an orthopedic screw which enters the talus laterally and ends just inferior to the ankle mor tise. This screw applies a fragment which has been noted inferior to the tip of the fibula. XR/XR ankle LT min 3V* [id number] Impression: Orthopedic screw in lateral aspect of the talus which is reducing an avulsion f racture.
--- NOTE | 2020-11-03 14:41 | ANE.PACU2 ---
Inpatient post-anesthesia follow up: Airway intact: Yes Vital signs: Temperature 97.2 F Pulse Rate 98 Respiratory Rate 18 Blood Pressure 140/95 Pulse Oximetry 100 Oxygen Delivery Me thod Room Air Oxygen Flow Rate 8 Fraction of Inspir ed Oxygen Hydration adequate: Yes Nausea and vomiting: No Pain level: 1 Mental status: Baseline
--- NOTE | 2020-11-03 21:53 | P.OP_ITS ---
Operative Report Date of procedure: November 03, 2020 Pre-op Diagnosis: Left talus fracture. Left lateral ankle instability Post-op diagnosis: same Procedure Done: Open reduction internal fixation left talus frature CPT code 67221 Modified Brostr?m left ankle CPT code 46269 Implants: 2-0 Vicryl 4-0 Vicryl 4-0 nylon. Arthrex headless compression screw 3.5 mm, Arthrex internal brace 2.0 with swivel lock and fiber tack. Specimens removed/disposition: None Pathology: none sent Surgeon: Wesly Sánchez D.P.M. Field Service Engineer: Dian Anesthesia: General Estimated blood loss: Less than 5 mL Tourniquet time: See intraoperative documentation IV fluids: None Urine output: None Complications: None Findings: Displaced fracture of the lateral body left talus. Attenuation of the left anterior talofibular ligament. Condition: stable Disposition: PACU Brief History: Patient is a pleasant 55-year-old male who has had progressive left ankle pain and instability. MRI and x-ray demonstrates large avulsion fracture of the left talus. Patient has had progressive instability and buckling in his left ankle. He is initially treated with nonweightbearing he was noncompliant with this. Transition to protected weightbearing in the cam boot this is difficult for him to do he has not received any relief in pain and wishes to proceed with surgical intervention. There is been a progression of the displacement of the fracture laterally and inferiorly appreciated on serial x-rays. Risks of surgery discussed with patient at length include pain, bleeding, numbness, infection, hardware failure, hardware irritation, delayed union, nonunion, failure to correct deformity, overcorrection of deformity, decreased motion and pain with motion of the left ankle. Persistent instability of the left lateral ankle, bruising, swelling, permanent numbness, hypersensitivity and paresthesias. Need for further surgical intervention. Patient interviewed preoperatively, informed consent signed, initialed his left lower extremity. Patient wishes to proceed. No guarantees written, expressed or implied. Procedure: Under mild sedation the patient was brought to the operating room and placed on the operating table in supine position. A timeout was performed. Of note a popliteal block to the left lower extremity was administered per anesthesia preoperatively this is greatly appreciated. Well-padded pneumatic tourniquet applied to the left high leg. General anesthesia administered by the anesthesia service. Once anesthesia was induced patient was placed in lateral decubitus position with right side down and right knee bent at 45 degrees all bony prominences well-padded, a platform was created to the left foot exposing and giving direct access to the left lateral ankle. The left lower extremity was then scrubbed, prepped and draped utilizing normal aseptic technique. Left lower extremity was exsanguinated with an Esmarch bandage and a tourniquet inflated to 250 mmHg. Attention was directed to the left lateral ankle where bony landmarks were palpated both lateral malleolus and fourth metatarsal base. A curvilinear incision was made at the inferior border of the lateral malleolus in a curvilinear fashion coursing towards the base of the fourth metatarsal. Incision was made with #15 blade through skin and carried down through subcutaneous tissue and fat layer utilizing a combination of blunt and sharp technique. All bleeders were ligated and cauterized as necessary. Care was taken to retract peroneal tendons inferiorly. A fresh 15 blade for deep dissection was carried out at the distal border of the lateral malleolus down to periosteum maintaining a cuff of lateral collateral ligament attachment and peroneal retinaculum. Dissection was carried inferiorly and distally to the lateral talar body where a loose osseous body was appreciated just inferior to the lateral malleolus this was approximately 2 mm x 2 mm and was excised sharply. Further dissection carried down to the lateral talar body and a displaced fracture was appreciated this was freed, curetted to remove all hematoma, temporarily fixated utilizing K wire. Once fracture was reduced normal AO technique was employed to fixate the fracture utilizing a 3.5 mm headless compression screw provided by Arthrex. This was a FT compression screw. Excellent position and reduction of the fracture fragment appreciated intraoperatively with direct visualization as well as all 3 cardinal planes not violating the ankle joint/tibiotalar articulation. Attention was then directed to the lateral collateral ligaments which were noted to be attenuated at the anterior talofibular ligament this was previously dissected and reflected anteriorly. A swivel lock was inserted to the body of the talus followed by fiber tack x2 at the distal fibula. Direct repair of the ATFL and retinaculum was performed pants over vest technique employed and a suture bridge was run extra-articular/extra capsular to the lateral malleolus utilizing a second knotless swivel lock system under tension with a left ankle slightly plantarflexed as to not over tighten. Internal brace was carried out utilizing business line controller recommendation and technique. After carrying out the modified Brostr?m repair incision site was flushed with copious amounts of sterile saline solution. Excellent repair was noted followed by closure utilizing 2-0 Vicryl at periosteal and deep structures, subcutaneous tissue reapproximated utilizing 4-0 Vicryl and skin closed utilizing 4-0 nylon. 20 cc of 0.5 sent Marcaine plain injected at the perioperative site postoperatively. Incision site was dressed with nonadherent Adaptic, sterile 4 x 4, Kerlix and Pramod wrap followed by application of cam boot with ankle at 90 d egrees. Tourniquet was deflated and a prompt hyperemic response was noted to the distal digits of the left foot. Patient tolerated the procedure well and was transferred to the PACU with vitals stable and vascular status intact. Following a period of postoperative monitoring he will be discharged home. He has crutches, will remain strict nonweightbearing to the left lower extremity. Follow-up next week for dressing change/nursing visit.
== END 2020-11-03 12:49 | disposition home or self-care (01) ==
PROVIDERS: PCP Family Medicine; Visit Provider Podiatrist Foot & Ankle Surgery
PROC: (CPT 27698; principal; 2020-11-03 09:10)
DX: S92.102A Unspecified fracture of left talus, initial encounter for closed fracture (principal); X58.XXXA Exposure to other specified factors, initial encounter; M25.372 Other instability, left ankle; F90.9 Attention-deficit hyperactivity disorder, unspecified type; F17.210 Nicotine dependence, cigarettes, uncomplicated
CPT/HCPCS: 27698; 28445; 12345; 64450; 73610; 76000; 76942; 96374; C1713; J0690; J1100; J2250; J2405; J2704; J2795; J3010; J3490; J7030

== ENCOUNTER → 2020-11-21 13:59 | Outpatient (BNVA) | payer OTHER, SELFPAY | PROVIDERS: PCP Family Medicine; Visit Provider Podiatrist Foot & Ankle Surgery | DX: M79.672 Pain in left foot (principal); S92.102A Unspecified fracture of left talus, initial encounter for closed fracture; X58.XXXA Exposure to other specified factors, initial encounter; Z98.890 Other specified postprocedural states | CPT/HCPCS: 73630 ==

== ENCOUNTER → 2020-12-14 13:38 | Outpatient (BNVA) | payer OTHER, SELFPAY | PROVIDERS: PCP Family Medicine; Visit Provider Podiatrist Foot & Ankle Surgery | DX: R93.7 Abnormal findings on diagnostic imaging of other parts of musculoskeletal system (principal); M79.673 Pain in unspecified foot; S92.122 Displaced fracture of body of left talus; Z98.890 Other specified postprocedural states; M79.672 Pain in left foot; S82.832D Other fracture of upper and lower end of left fibula, subsequent encounter for closed fracture with routine healing; X50.1XXD Overexertion from prolonged static or awkward postures, subsequent encounter | CPT/HCPCS: 73610 ==

== ENCOUNTER → 2021-01-15 08:54 | Outpatient (BNVA) | payer OTHER, SELFPAY | PROVIDERS: PCP Family Medicine; Visit Provider Podiatrist Foot & Ankle Surgery | DX: Z98.890 Other specified postprocedural states (principal); S92.122 Displaced fracture of body of left talus | CPT/HCPCS: 73610 ==

== ENCOUNTER 2021-01-24 06:00 | Outpatient (RCR) | payer OTHER, SELFPAY | END 2021-02-09 23:59 | disposition home or self-care (01) | LOC: TPT 06:00 | PROVIDERS: PCP Family Medicine; Referring Provider Podiatrist Foot & Ankle Surgery; Visit Provider Podiatrist Foot & Ankle Surgery | DX: Z47.89 Encounter for other orthopedic aftercare (principal) | CPT/HCPCS: 97110; 97140; 97161 ==

== ENCOUNTER → 2021-01-29 11:29 | Outpatient (BNVA) | payer OTHER, SELFPAY | PROVIDERS: PCP Family Medicine; Visit Provider Family Medicine | DX: F31.12 Bipolar disorder, current episode manic without psychotic features, moderate (principal); F90.2 Attention-deficit hyperactivity disorder, combined type | CPT/HCPCS: 80178 ==

== ENCOUNTER 2021-02-10 06:00 | Outpatient (RCR) | payer OTHER, SELFPAY | END 2021-03-12 23:59 | disposition home or self-care (01) | LOC: TPT 06:00 | PROVIDERS: PCP Family Medicine; Referring Provider Podiatrist Foot & Ankle Surgery; Visit Provider Podiatrist Foot & Ankle Surgery | DX: Z47.89 Encounter for other orthopedic aftercare (principal) | CPT/HCPCS: 97110; 97140 ==

== ENCOUNTER 2021-02-15 03:53 | Emergency (ER) | payer OTHER, SELFPAY ==
[2021-02-15 03:51] VITALS: BMI 23.6
--- NOTE | 2021-02-15 03:53 | XRR_ITS ---
PROCEDURE INFORMATION: Exam: XR Chest Exam date and time: 02/15/2021 3:55 AM Age: 55 years old Clinical indication: Patient HX: Chest pain/epigastric pain; Additional info: Abd pain TECHNIQUE: Imaging protocol: XR of the chest. Views: 1 view. COMPARISON: CR Chest 1 [place] [id number] 02/29/2016 6:13 AM FINDINGS: Lungs: Unremarkable. No consolidation. Pleural spaces: Unremarkable. No pleural effusion. No pneumothorax. Heart/Mediastinum: Unremarkable. No cardiomegaly. Bones/joints: Unremarkable. XR/XR chest 1V portable [id number] IMPRESSION: No acute findings.
--- NOTE | 2021-02-15 03:54 | ECG_ITS ---
[facility] Test Date: 2021-02-15 Pat Name: Denny Gleason Department: Room: Gender: Male Tip Printer: : 1965 Requested By: Cristobal Petit Order Number: [id number] Feli MD: Kim Ruiz M.D. Measurements Intervals [place] Rate: 100 P: 53 VA: 147 QRS: -14 QRSD: 90 T: -4 QT: 318 QTc: 412 Interpretive Statements Possible SINUS TACHYCARDIA LOW QRS VOLTAGE IN PRECORDIAL LEADS [QRS DEFLECTION < 1.0 mV IN CHEST LEADS] ABNORMAL RHYTHM ECG Compared to ECG 11/21/2019 23:49:39 Sinus rhythm no longer present Heavy baseline artifact. Need to repeat the study Electronically Signed On 02-15-2021 20:47:54 CDT by Kim Ruiz M.D. [id number]
[2021-02-15 03:56] VITALS: BP 116/81; PULSE 108; RESP 15; O2SAT 96
--- NOTE | 2021-02-15 03:56 | ED_ITS ---
HPI - Abdominal Pain General: Chief Complaint: Abdominal Pain Stated Complaint: ABD PAIN Source: patient and EMS Mode of arrival: EMS Limitations: no limitations History of Present Illness: HPI narrative: 55-year-old male states that he has been having abdominal pain the last day with a getting much worse throughout the night. States pain is epigastric in nature and radiates up in his chest. He states pain is currently 7 out of 10. He has had some nausea and vomiting denies any dysuria. He states he had a history of pancreatitis in the past. He states this does feel similar. Denies any fevers. Associated Symptoms: Reports nausea; Denies chills, dysuria and fever(s) Review of Systems Const: Denies: fever(s), chills, body aches or change in appetite Eyes: Denies: blurry vision or eye discomfort ENMT: Denies: throat pain or dental pain Card: Reports: chest pain Resp: Denies: dyspnea GI: Reports: abdominal pain and nausea : Denies: dysuria Musc: Denies: neck pain or back pain Skin/Breast: Denies: rash Neuro: Denies: headache(s) Psych: Denies: depression Mars/Lymph: Denies: easy bruising All/Imm: Denies: urticaria PFSH ED PFSH: Medical History (Updated 02/15/21 @ 04:59 by Cristobal Petit MD) ADHD Alcohol abuse Bipolar 1 disorder, manic, moderate History of hepatitis C Keri Social History Smoking and tobacco status: current every day smoker smokeless tobacco Smokeless tobacco user: chewing tobacco Smokeless tobacco details: 1 can every 4 days Quit status (tobacco): considering quitting Second hand smoke exposure: No Alcohol intake: never Household members: spouse Marital status: Current occupational status: employed Physical Exam Const: COMMON NORMALS: no acute distress, patient oriented x3 and healthy appearing HENMT: COMMON NORMALS: normocephalic and atraumatic HEAD & SCALP: normocephalic and atraumatic Eye: COMMON NORMALS: Equal, round and reactive pupils present and EOMs intact bilaterally PUPIL: Yes Equal, round and reactive pupils present Neck/C-Spine: COMMON NORMALS: full ROM and supple Chest: COMMONS NORMALS: normal inspection of the chest and normal palpation of entire chest wall Resp: COMMON NORMALS: normal respiratory effort, No retractions, No use of accessory muscles and clear to auscultation bilaterally AUSCULTATION: clear to auscultation bilaterally Cardio: COMMON NORMALS: regular rate, regular rhythm and No murmurs present (Cardio) RATE: regular rate RHYTHM: regular rhythm GI: COMMON NORMALS: Normal to inspection, nondistended, normoactive bowel sounds present, Soft to palpation, non-tender and no masses PALPATION: Yes Soft to palpation Extremity: COMMON NORMALS: normal to inspection and full ROM Neuro: COMMON NORMALS: patient oriented x3, moves all extremities and no focal motor deficits Psych: COMMON NORMALS: mental status grossly normal, Normal thought process present and cooperative THOUGHT PROCESS: Normal thought process present Skin: COMMON NORMALS: no rashes or lesions noted and no wounds GENERAL SKIN EXAM: no rashes or lesions noted Course Vital Signs: Vital signs: Vital Signs Pulse Rate 108 H 02/15/21 03:56 Respiratory Rate 20 H 02/15/21 05:07 Blood Pressure 116/81 02/15/21 03:56 Pulse Oximetry 96 02/15/21 03:56 MDM - Abdominal Pain MDM Narrative: Medical decision making narrative: Patient presents here with a mpbais-qpbk-ktt stone to the right. This is likely causing his pain. His pain has improved here. He has had multiple kidney stones in the past. He is to follow-up with urology. We will place him on pain meds on the Flomax. He is to return if worsening. He understands and agrees to plan. Lab Data: Labs: Lab Results 02/15/21 02/15/21 02/15/21 Range/Units Unknown Unknown Unknown WBC 10.6 H (4.0-10.0) 10^3/ uL RBC 5.07 (4.1-5.3) 10^6/u L Hgb 16.2 (11.7-16.6) g/dL Hct 46.1 (42.0-52.0) % MCV 90.9 (80-94) fL MCH 32.0 (28.0-34.0) pg MCHC 35.1 (30.0-36.0) g/dL RDW 12.5 (12.1-15.1) % Plt Count 337 (130-400) 10^3/c mm MPV 9.9 (7.4-10.4) fL Neut % (Auto) 67.2 % Lymph % (Auto) 21.8 % [place] % (Auto) 9.3 % Eos % (Auto) 0.8 % Baso % (Auto) 0.6 % Neut # (Auto) 7.14 (1.8-7.7) 10^3/u L Lymph # (Auto) 2.3 (0.8-4.8) 10^3/u L [place] # (Auto) 1.0 H (0.2-0.9) 10^3/u L Eos # (Auto) 0.1 (0.0-0.8) 10^3/u L Baso # (Auto) 0.1 (0.0-0.1) 10^3/u L Nucleated RBC % (a uto) 0 % Nucleated RBCs # 0.0 /100WBC Sodium 140 (136-145) mmol/L Potassium 4.0 (3.5-5.1) mmol/L Chloride 100 (98-107) mmol/L Carbon Dioxide 28 (22-29) mmol/L Anion Gap 16.0 (5-19) BUN 10 (6-20) mg/dL Creatinine 0.9 (0.7-1.2) mg/dL GFR Calculation 87.3 L (90-130) mL/min Glucose 82 (65-115) mg/dL Calculated Osmolal ity 288 (285-295) mOsm/k g Calcium 9.1 (8.5-10.5) mg/dL Total Bilirubin 0.2 (0.15-1.2) mg/dL AST 14 (0-40) U/L ALT 11 (0-41) U/L Alkaline Phosphata se 81 (40-130) IU/L Troponin T Baselin e 6 (0-15) ng/L Total Protein 7.1 (6.6-8.7) g/dL Albumin 4.6 (3.5-5.2) g/dL Globulin 2.5 (1.3-4.6) g/dL Lipase 22 (13-60) U/L Imaging Data ^: CT Abd/Pel: Radiologist's impression: [address] [address] [address] Scan Report Signed Patient: Denny Gleason Unit #: [id number] : 1965 Age/Sex: 55 / M ADM Date: 02/15/21 Loc: ER Room/Bed: Attending Dr: Ordering Provider/Ordering MD: Cristobal Petit MD Date of Service: 02/15/21 Procedure(s): CT abdomen pelvis w con* [id number] Accession Number(s): [id number] Report Number: [id number] PROCEDURE INFORMATION: Exam: CT Abdomen And Pelvis With Contrast Exam date and time: 02/15/2021 4:02 AM Age: 55 years old Clinical indication: Nausea and vomiting; Abdominal pain; Prior surgery; Surgery type: Appy. ; Patient HX: Epigastric pain with n/v. History of pancreatitis and oral cancer. ; Additional info: Abd pain TECHNIQUE: Imaging protocol: Computed tomography of the abdomen and pelvis with contrast. Radiation optimization: All CT scans at this facility use at least one of these dose optimization techniques: automated exposure control; mA and/or kV adjustment per patient size (includes targeted exams where dose is matched to clinical indication); or iterative reconstruction. Contrast material: OMNI 300; Contrast volume: 95 ml; Contrast route: INTRAVENOUS (IV); COMPARISON: CT Abdomen/Pelvis Renal [id number] 09/24/2019 7:55 PM RADIATION DOSE METRICS: Total DLP (mGy-cm): 1112.1 FINDINGS: Lungs: The lung bases are clear. No effusion Liver: Normal. No mass. Gallbladder and bile ducts: No wall thickening, pericholecystic fluid or stones. Pancreas: Normal. No ductal dilation. Spleen: Normal. No splenomegaly. Adrenal glands: Normal. No mass. Kidneys and ureters: There are 2 right distal ureteral stones just proximal to the UVJ, the largest is 3.6 mm. Two nonobstructing left renal pelvis stones, the largest measuring 5 mm. Stomach and bowel: Unremarkable. No obstruction. No mucosal thickening. Appendix: Appendix has been removed. Intraperitoneal space: Unremarkable. No free air. No significant fluid collection. Vasculature: Unremarkable. No abdominal aortic aneurysm. Lymph nodes: Unremarkable. No enlarged lymph nodes. Urinary bladder: Unremarkable as visualized. Reproductive: Unremarkable as visualized. Bones/joints: Unremarkable. No acute fracture. Soft tissues: Unremarkable. CT/CT abdomen pelvis w con* [id number] IMPRESSION: There are 2 right distal ureteral stones just proximal to the UVJ, the largest is 3.6 mm. Discharge Plan Discharge Patient Disposition: Home Clinical Impression: Kidney stone on right side Condition: Stable Prescriptions: New hydrocodone-acetaminophen 5-325 mg tablet 1 tab PO Q6H PRN (Reason: pain) Qty: 14 RF: 0 ondansetron 4 mg tablet,disintegrating 4 mg PO Q6H PRN (Reason: nausea and vomiting) Qty: 14 RF: 0 Flomax 0.4 mg capsule 0.4 mg PO DAILY Qty: 5 RF: 0 No Action (DME) ASO See Rx Instructions .Route .MEDSUPPLY Qty: 1 RF: 0 diclofenac sodium [Arthritis Pain (diclofenac)] 1 % gel 2 g topical QID Qty: 100 RF: 0 dextroamphetamine-amphetamine [Adderall] 20 mg tablet 20 mg PO DAILY 30 Days Qty: 30 RF: 0 dextroamphetamine-amphetamine [Adderall] 30 mg tablet 30 mg PO DAILY 30 Days Qty: 30 RF: 0 tramadol [Ultram] 50 mg tablet 50 mg PO Q4H PRN (Reason: pain) 7 Days Qty: 42 RF: 0 lithium carbonate 300 mg capsule 300 mg PO TID 30 Days Qty: 120 RF: 2 Discharge Orders: Discharge ED (Routine); Ordered 02/15/21 Ordered By: Cristobal Petit Referrals: Dexter Grant MD [Physician] - 1-3 days Dior Campos MD [Primary Care Provider] - Discharge Diet: Advance as tolerated Discharge Activity: Resume usual activity Patient Instructions: Kidney Stones (ED), Opioid Safety Coding Level of Care Code ED Petrography Teacher for Chg Fwd Exam Comprehensive
--- NOTE | 2021-02-15 03:59 | CTR_ITS ---
PROCEDURE INFORMATION: Exam: CT Abdomen And Pelvis With Contrast Exam date and time: 02/15/2021 4:02 AM Age: 55 years old Clinical indication: Nausea and vomiting; Abdominal pain; Prior surgery; Surgery type: Appy. ; Patient HX: Epigastric pain with n/v. History of pancreatitis and oral cancer. ; Additional info: Abd pain TECHNIQUE: Imaging protocol: Computed tomography of the abdomen and pelvis with contrast. Radiation optimization: All CT scans at this facility use at least one of these dose optimization techniques: automated exposure control; mA and/or kV adjustment per patient size (includes targeted exams where dose is matched to clinical indication); or iterative reconstruction. Contrast material: OMNI 300; Contrast volume: 95 ml; Contrast route: INTRAVENOUS (IV); COMPARISON: CT Abdomen/Pelvis Renal [id number] 09/24/2019 7:55 PM RADIATION DOSE METRICS: Total DLP (mGy-cm): 1112.1 FINDINGS: Lungs: The lung bases are clear. No effusion Liver: Normal. No mass. Gallbladder and bile ducts: No wall thickening, pericholecystic fluid or stones. Pancreas: Normal. No ductal dilation. Spleen: Normal. No splenomegaly. Adrenal glands: Normal. No mass. Kidneys and ureters: There are 2 right distal ureteral stones just proximal to the UVJ, the largest is 3.6 mm. Two nonobstructing left renal pelvis stones, the largest measuring 5 mm. Stomach and bowel: Unremarkable. No obstruction. No mucosal thickening. Appendix: Appendix has been removed. Intraperitoneal space: Unremarkable. No free air. No significant fluid collection. Vasculature: Unremarkable. No abdominal aortic aneurysm. Lymph nodes: Unremarkable. No enlarged lymph nodes. Urinary bladder: Unremarkable as visualized. Reproductive: Unremarkable as visualized. Bones/joints: Unremarkable. No acute fracture. Soft tissues: Unremarkable. CT/CT abdomen pelvis w con* [id number] IMPRESSION: There are 2 right distal ureteral stones just proximal to the UVJ, the largest is 3.6 mm. Radiation Dose CTDIVOL = (mGy): DLP = 1112.1 (mGy-cm)
[2021-02-15 04:01] LABS: Basophils # 0.1 10^3/uL (0.0-0.1); Basophils % 0.6 %; Eosinophils # 0.1 10^3/uL (0.0-0.8); Eosinophils % 0.8 %; Hematocrit 46.1 % (42.0-52.0); Hemoglobin 16.2 g/dL (11.7-16.6); Lymphocytes # 2.3 10^3/uL (0.8-4.8); Lymphocytes % 21.8 %; Mean Corpuscular HGB Conc 35.1 g/dL (30.0-36.0); Mean Corpuscular Volume 90.9 fL (80-94); Mean Platelet Volume 9.9 fL (7.4-10.4); Monocytes % 9.3 %; Neutrophils # 7.14 10^3/uL (1.8-7.7); Neutrophils % 67.2 %; Nucleated Red Blood Cells % 0 %; Platelet Count 337 10^3/cmm (130-400); Red Blood Count 5.07 10^6/uL (4.1-5.3); Red Cell Distribution Width 12.5 % (12.1-15.1); White Blood Count 10.6 10^3/uL (4.0-10.0)
[2021-02-15 04:06] VITALS: RESP 17
[2021-02-15] MEDS: sodium chloride 0.9% 1,000 ML 999 ML IV (04:06)
[2021-02-15] MEDS: HYDROmorphone 1 mg/mL INJ 1 mL IVP ×2 (04:06→04:34)
[2021-02-15 04:19] LABS: Alanine Aminotransferase 11 U/L (0-41); Albumin Level 4.6 g/dL (3.5-5.2); Alkaline Phosphatase 81 IU/L (40-130); Aspartate Amino Transferase 14 U/L (0-40); Blood Urea Nitrogen 10 mg/dL (6-20); Calcium 9.1 mg/dL (8.5-10.5); Carbon Dioxide 28 mmol/L (22-29); Chloride 100 mmol/L (98-107); Globulin 2.5 g/dL (1.3-4.6); Glomerular Filtration Rate 87.3 mL/min (90-130); Glucose 82 mg/dL (65-115); Lipase 22 U/L (13-60); Osmolality Calculated 288 mOsm/kg (285-295); Sodium 140 mmol/L (136-145); Total Bilirubin 0.2 mg/dL (0.15-1.2); Total Protein 7.1 g/dL (6.6-8.7)
[2021-02-15] MEDS: iohexol 300 mg/mL 100 mL Btl IV (04:20)
[2021-02-15 04:23] LABS: Troponin(5th) Baseline 6 ng/L (0-15)
[2021-02-15] MEDS: ketorolac 30 mg/mL INJ 15 MG IVP (04:38)
[2021-02-15 05:07] VITALS: RESP 20
[2021-02-15] MEDS: morphine 4 mg/mL SDV 1 mL IVP (05:07)
[2021-02-15 05:41] VITALS: BP 108/69; PULSE 106; RESP 18; TEMP 37; O2SAT 96
--- NOTE | 2021-02-15 09:52 | DCPLANNER ---
banking management consulting manager had message to schedule a follow up appointment for patient with Dr. Grant. banking management consulting manager called the office of Dr. Grant, spoke with Carol, gave clinic patients information. banking management consulting manager was told that patients information would be printed and reviewed. Clinic will call patient with appointment information.
--- NOTE | 2021-02-21 08:49 | DCPLANNER ---
Addendum entered by Radha Wallace 02/21/21 08:51: Dr. Helton office was unable to reach patient to schedule a follow up appointment. Original Note: Patient had a follow up appointment scheduled with Dr. Helton office - appointment was cancelled, not rescheduled at this time.
== END 2021-02-15 05:42 | disposition home or self-care (01) ==
PROVIDERS: Emergency Provider Emergency Medicine; PCP Family Medicine
DX: N20.0 Calculus of kidney (principal); Z86.19 Personal history of other infectious and parasitic diseases; F17.220 Nicotine dependence, chewing tobacco, uncomplicated
CPT/HCPCS: 71045; 74177; 80053; 83690; 84484; 85025; 93005; 96361; 96374; 96375; 96376; 99284; J1170; J1885; J2270; J7030; Q9967

== ENCOUNTER → 2021-03-21 10:12 | Outpatient (BNVA) | payer OTHER, SELFPAY | PROVIDERS: PCP Family Medicine; Visit Provider Podiatrist Foot & Ankle Surgery | DX: S82.892D Other fracture of left lower leg, subsequent encounter for closed fracture with routine healing (principal); X58.XXXD Exposure to other specified factors, subsequent encounter | CPT/HCPCS: 73610 ==

== ENCOUNTER → 2021-06-20 08:21 | Outpatient (BNVA) | payer OTHER, SELFPAY | PROVIDERS: PCP Family Medicine; Visit Provider Podiatrist Foot & Ankle Surgery | DX: S82.892D Other fracture of left lower leg, subsequent encounter for closed fracture with routine healing (principal); X58.XXXD Exposure to other specified factors, subsequent encounter | CPT/HCPCS: 73610 ==

== ENCOUNTER → 2021-06-25 13:41 | Outpatient (BNVA) | payer OTHER, SELFPAY | PROVIDERS: PCP Family Medicine; Visit Provider Podiatrist Foot & Ankle Surgery | DX: Z20.822 Contact with and (suspected) exposure to COVID-19 (principal) | CPT/HCPCS: 87635 ==

== ENCOUNTER 2021-06-29 09:44 | Day surgery (SDC) | payer OTHER, SELFPAY ==
[2021-06-28 09:15] VITALS: BMI 23.6
[2021-06-29] VITALS (8 sets, daily range): BP systolic 103–128; BP diastolic 72–93; PULSE 63–113; RESP 16–20; TEMP 36.3–36.8; O2SAT 93–100
[2021-06-29] MEDS: sodium chloride 0.9% 1,000 ML 30 ML IV (10:03)
--- NOTE | 2021-06-29 10:33 | ANES.PREANE2 ---
Pre-Anesthetic Assessment Pre-Anesthetic Assessment: Height/Weight: Height 1.75 m Weight 72.575 kg Temp Pulse Resp BP Pulse Ox 97.6 F 113 H 18 126/93 99 06/29/21 09:52 06/29/21 09:52 06/29/21 09:52 06/29/21 09:52 06/29/21 09:52 Preop Diagnosis: Peroneal tendon tear and painful hardware left ankle Proposed Procedure: Operation Date: 06/29/21 11:15 Proposed Procedures p Hardware Removal 24396 [id number] T84.84XA M25.373(Left) - Wesly Sánchez DPM s Excision of loos osteochondral body(Left) - Wesly Sánchez DPM s Peroneal Tendon Repair Foot(Left) - Wesly Sánchez DPM Was Beta Herve taken within 24 hours: N/A Was Clonidine taken within 24 hours: N/A Last intake: Intake Last Liquid Date 06/28/21 Last Liquid Time 23:59 Last Solid Date 06/28/21 Last Solid Time 19:00 Social: Social History: No alcohol and No tobacco Exam: Pre-Anes Outpt Exam: alert, oriented x 3, clear to auscultation bilaterally and regular rate & rhythm Airway: Submandibular: WNL Cervical ROM: WNL MP: 2 Dentition: Chipped Additional comments: Poor dentition, several missing and cracked History/ROS: No significant history except as noted Neuropsych: Neuropsych: Anxiety and Depression Anesthetic Plan: ASA status: 2 Anesthesia: General Risk of > 500 ml blood loss (7ml/kg in children): No Meds/Allergies Current Medications: Current Medications Generic Name Dose Route Start Last Admin Trade Name Constantineq PRN Reason Stop Dose Admin Sodium Chloride 1,000 mls @ 30 ml s/hr 06/29/21 10:00 06/29/21 10:03 Sodium Chloride 0.9% IV 06/30/21 09:59 30 mls/hr .Q24H LAURA Administration PFSH Anesthesia PFSH: Medical History ADHD Alcohol abuse Bipolar 1 disorder, manic, moderate History of hepatitis C Keri Social History Smoking and tobacco status: never smoked Quit status (tobacco): considering quitting Second hand smoke exposure: No Alcohol intake: never Household members: spouse Marital status: Current occupational status: employed Data Anesthesia Cardiac Studies: No Data to Display
[2021-06-29] MEDS: midazolam 1 mg/mL INJ 2 mL 2 MG IVP (11:37)
--- NOTE | 2021-06-29 12:07 | W.PM.OPSUD ---
Surgery/Procedure H&P Update DATE OF PROCEDURE: June 29, 2021 DATE H&P PERFORMED: 06/20/21 H&P UPDATE INFORMATION: I have reviewed H&P completed within last 30 days, I have examined patient prior to procedure, No changes to prior documentation and H&P is in [facility] EMR on date indicated PREOP DIAGNOSIS: Peroneal tendon tear and painful hardware left ankle PLANNED PROCEDURE: Operation Date: 06/29/21 11:15 Proposed Procedures p Hardware Removal [id number] T84.84XA M25.373(Left) - Wesly Sánchez DPM s Excision of loos osteochondral body(Left) - Wesly Sánchez DPM s Peroneal Tendon Repair Foot(Left) - Wesly Sánchez DPM
--- NOTE | 2021-06-29 13:35 | P.OP_ITS ---
Operative Report Date of procedure: June 29, 2021 Pre-op Diagnosis: Peroneal tendon tear and painful hardware left ankle Post-op diagnosis: same Post-op Findings: None no tear at the peroneal tendons appreciated intraoperatively Procedure Done: Deep hardware removal left ankle, loose body excision left ankle. Implants: 3-0 Vicryl, 4-0 Vicryl, 4-0 nylon Specimens removed/disposition: 3.5 mm FT Arthrex screw Pathology: none sent Surgeon: Wesly Sánchez D.P.M. Manager [employer]: [place] Anesthesia: General Estimated blood loss: Less than 5 mL Tourniquet time: See intraoperative document should IV fluids: None Urine output: None Complications: None Findings: Loose body left lateral ankle, retained hardware left lateral ankle Condition: stable Disposition: PACU Brief History: Patient has had hardware pain and pain at the anterior lateral left ankle. Wishing to undergo hardware removal. He denies any instability. Is wearing a brace finished physical therapy though his attendance was patchy. Risks include pain, bleeding, numbness, infection, ankle instability, failure to alleviate pain, chronic swelling, chronic numbness, need for further surgical intervention. Patient n.p.o. since midnight, Covid screening negative, informed consent signed, initialed his left lower extremity. No guarantees written, expressed or implied. Patient wishes to proceed. Procedure: Under mild sedation the patient was brought to the operating room and placed on the operating table in supine position. A timeout was performed performed. Anesthesia was then administered by the anesthesia service. Left ankle block performed by myself in a V nerve block consisting of 20 cc of one-to-one mixture 1% lidocaine 0.5% Marcaine plain. Well-padded pneumatic tourniquet applied to the high ankle left lower extremity in the left lower extremity was scrubbed, prepped and draped utilizing normal aseptic technique. Left foot and ankle were wrapped with an Esmarch bandage and a tourniquet inflated to 250 mmHg. Attention was directed to the previous cicatrix where a 15 blade utilized to make a curvilinear incision over the left lateral ankle starting at the distal fibula and in a curvilinear fashion towards the metatarsal bases. Dissection was carried down through subcutaneous tissue and retinaculum utilizing a combination of blunt and sharp technique. Care was taken to retract and preserve neurovascular and tendinous structures. All bleeders were ligated and cauterized as necessary. A 3.5 mm FT Arthrex screw was removed in total and passed from the operative field. Loose body was then excised at the lateral left ankle. Portion of the peroneal tendons that were visualized showed no tear or pathology. Incision was then flushed with copious amounts of sterile saline solution and the extensor retinaculum was closed utilizing 3-0 Vicryl subcutaneous tissue closed with 4-0 Vicryl and skin closed with 4-0 nylon. Incision site was then dressed with Adaptic, sterile 4 x 4, Kerlix, Pramod wrap and a cam boot was then applied. Tourniquet was deflated and a prompt hyperemic response was noted to the distal digits of the left foot. Patient tolerated the procedure well was transferred to the PACU with vital signs stable and vascular status intact. Following a period of postoperative monitoring he will be discharged home may be weightbearing as tolerated with a cam boot. He is prescribed oxycodone 10 mg to be taken every 4-6 hours as needed for pain. Preoperatively we discussed narcotic pain medication for duration of 14 days postoperatively beyond that he will need to step off of narcotics and go to Tylenol. May anticipate physical therapy potentially in the future. Will allow 2 to 3 weeks of postoperative recovery and incision healing before physical therapy consultation.
--- NOTE | 2021-06-29 13:35 | XR_ITS ---
WS: [id number] XR ankle LT min 3V* [id number] REASON FOR EXAM: Postop hardware removal left ankle FINDINGS: There is been removal of the screw from the lateral left talus. No residual appliance. No focal bone abnormality. XR/XR ankle LT min 3V* [id number] IMPRESSION: Hardware removal as above.
--- NOTE | 2021-06-29 14:10 | ANE.PACU2 ---
Inpatient post-anesthesia follow up: Airway intact: Yes Vital signs: Temperature 97.4 F Pulse Rate 87 Respiratory Rate 17 Blood Pressure 128/84 Pulse Oximetry 94 Oxygen Delivery Me thod Room Air Oxygen Flow Rate Fraction of Inspir ed Oxygen Hydration adequate: Yes Nausea and vomiting: No Pain level: 2 Mental status: Baseline
== END 2021-06-29 14:34 | disposition home or self-care (01) ==
PROVIDERS: PCP Family Medicine; Visit Provider Podiatrist Foot & Ankle Surgery
PROC: (CPT 20680; principal; 2021-06-29 11:05)
PROC: (CPT 20680; 2021-06-29 11:05)
DX: T84.84XA Pain due to internal orthopedic prosthetic devices, implants and grafts, initial encounter (principal); Z86.19 Personal history of other infectious and parasitic diseases; F32.9 Major depressive disorder, single episode, unspecified; F41.9 Anxiety disorder, unspecified
CPT/HCPCS: 20680; 73610; 96365; J0690; J2250; J2405; J2704; J3010; J3490; J7030

== ENCOUNTER 2021-09-03 06:00 | Outpatient (RCR) | payer OTHER, SELFPAY | END 2021-09-11 23:59 | disposition home or self-care (01) | LOC: TPT 06:00 | PROVIDERS: PCP Family Medicine; Referring Provider Podiatrist Foot & Ankle Surgery; Visit Provider Podiatrist Foot & Ankle Surgery | DX: Z98.890 Other specified postprocedural states (principal); M76.72 Peroneal tendinitis, left leg | CPT/HCPCS: 97110; 97163 ==

== ENCOUNTER 2021-09-12 06:00 | Outpatient (RCR) | payer OTHER, SELFPAY | END 2021-10-12 23:59 | disposition home or self-care (01) | LOC: TPT 06:00 | PROVIDERS: PCP Family Medicine; Referring Provider Podiatrist Foot & Ankle Surgery; Visit Provider Podiatrist Foot & Ankle Surgery | DX: Z98.890 Other specified postprocedural states (principal); M76.72 Peroneal tendinitis, left leg | CPT/HCPCS: 97110; 97140 ==

== ENCOUNTER 2021-10-13 06:00 | Outpatient (RCR) | payer OTHER, SELFPAY | END 2021-11-12 23:59 | disposition home or self-care (01) | LOC: TPT 06:00 | PROVIDERS: PCP Family Medicine; Referring Provider Podiatrist Foot & Ankle Surgery; Visit Provider Podiatrist Foot & Ankle Surgery | DX: Z98.890 Other specified postprocedural states (principal); M76.72 Peroneal tendinitis, left leg | CPT/HCPCS: 97110; 97140 ==

== ENCOUNTER 2021-11-13 06:00 | Outpatient (RCR) | payer OTHER, SELFPAY | END 2021-12-10 23:59 | disposition home or self-care (01) | LOC: TPT 06:00 | PROVIDERS: PCP Family Medicine; Referring Provider Podiatrist Foot & Ankle Surgery; Visit Provider Podiatrist Foot & Ankle Surgery | DX: Z47.89 Encounter for other orthopedic aftercare (principal) | CPT/HCPCS: 73610 ==

== ENCOUNTER 2021-12-25 05:40 | Emergency (ER) | payer OTHER, SELFPAY ==
[2021-12-25 05:48] VITALS: BP 148/104; PULSE 98; RESP 18; TEMP 36.7; O2SAT 100; BMI 23.6
[2021-12-25 05:57] LABS: Basophils % 0.6 %; Eosinophils # 0.4 10^3/uL (0.0-0.8); Eosinophils % 5.6 %; Hemoglobin 15.7 g/dL (11.7-16.6); Lymphocytes # 2.5 10^3/uL (0.8-4.8); Lymphocytes % 35.3 %; Mean Corpuscular HGB Conc 33.4 g/dL (30.0-36.0); Mean Corpuscular Hemoglobin 32.6 pg (28.0-34.0); Mean Corpuscular Volume 97.7 fl (80-94); Mean Platelet Volume 9.7 fL (7.4-10.4); Monocytes # 1.2 10^3/uL (0.2-0.9); Monocytes % 17.4 %; Neutrophils # 2.92 10^3/uL (1.8-7.7); Neutrophils % 40.8 %; Nucleated Red Blood Cells % 0 %; Platelet Count 296 10^3/cmm (130-400); Red Blood Count 4.81 10^6/uL (4.1-5.3); White Blood Count 7.1 10^3/uL (4.0-10.0)
[2021-12-25 05:58] VITALS: RESP 20; O2SAT 97
[2021-12-25] MEDS: morphine 4 mg/mL SDV 1 mL IVP ×2 (05:58→07:44)
[2021-12-25] MEDS: lactated ringers 1,000 ML 999 ML IV (05:59)
--- NOTE | 2021-12-25 06:11 | CTR_ITS ---
PROCEDURE INFORMATION: Exam: CT Abdomen And Pelvis Without Contrast Exam date and time: 12/25/2021 6:11 AM Age: 56 years old Clinical indication: Pain; Other: Left flank; Additional info: Flank pain hematuria / left flank TECHNIQUE: Imaging protocol: Computed tomography of the abdomen and pelvis without contrast. Radiation optimization: All CT scans at this facility use at least one of these dose optimization techniques: automated exposure control; mA and/or kV adjustment per patient size (includes targeted exams where dose is matched to clinical indication); or iterative reconstruction. COMPARISON: CT abdomen pelvis w con* [id number] 02/15/2021 4:33 AM RADIATION DOSE METRICS: Total DLP (mGy-cm): 850.99 FINDINGS: Lungs: Calcified granuloma right lung base Liver: Normal. No mass. Gallbladder and bile ducts: Normal. No calcified stones. No ductal dilation. Pancreas: Normal. No ductal dilation. Spleen: Normal. No splenomegaly. Adrenal glands: Normal. No mass. Kidneys and ureters: Small renal calcifications bilaterally largest on the right inferiorly. 2 mm. Numerous renal calcification on the left largest inferiorly 6 mm. Stomach and bowel: Moderate amount stool within the large bowel. Air and fluid-filled large bowel Appendix: The appendix is not visualized. Intraperitoneal space: Unremarkable. No free air. No significant fluid collection. Vasculature: Unremarkable. No abdominal aortic aneurysm. Lymph nodes: Unremarkable. No enlarged lymph nodes. Urinary bladder: 3 mm calcification within the urinary bladder. Prominence of the collecting system on the left. Findings consistent with recently passed calculus. Reproductive: Unremarkable as visualized. Bones/joints: Unremarkable. No acute fracture. Soft tissues: Unremarkable. CT/CT kidney stone [id number] IMPRESSION: 3 mm calcification within the urinary bladder. Prominence of the collecting system on the left. Findings consistent with recently passed calculus.
[2021-12-25 06:13] LABS: Alanine Aminotransferase 15 U/L (0-41); Albumin Level 4.7 g/dL (3.5-5.2); Alkaline Phosphatase 79 IU/L (40-130); Anion Gap 14.4 (5-19); Aspartate Amino Transferase 14 U/L (0-40); Blood Urea Nitrogen 17 mg/dL (6-20); Carbon Dioxide 26 mmol/L (22-29); Chloride 102 mmol/L (98-107); Globulin 2.6 g/dL (1.3-4.6); Glomerular Filtration Rate 62.4 mL/min (90-130); Glucose 114 mg/dL (65-115); Osmolality Calculated 290 mOsm/kg (285-295); Potassium 3.4 mmol/L (3.5-5.1); Sodium 139 mmol/L (136-145); Total Bilirubin 0.2 mg/dL (0.15-1.2); Total Protein 7.3 g/dL (6.6-8.7)
[2021-12-25 07:00] VITALS: BP 130/90
--- NOTE | 2021-12-25 07:39 | ED_ITS ---
HPI - Male Genitourinary General: Chief complaint: Urogenital-Male Stated complaint: Lower Back Left\Poss Kidney Stones Time Seen by Provider: 12/25/21 06:07 Source: patient Mode of arrival: ambulatory Limitations: no limitations History of Present Illness: 57-year-old male presents to the emergency room with complaint of left flank pain radiating into the groin and pelvic region. He has had problems with kidney stones in the past. This began around 1 AM this morning woke him up and it has continued. He has not taken anything for it up to this point. He denies any fever sweats or chills any dysuria. He did have some hematuria initially. Onset (ago): hour(s) Duration: constant Location: left flank Radiation: left inguinal region Severity: severe Quality: aching and sharp Relieving factors: none Exacerbating factors: none Context: trauma Associated symptoms: Reports hematuria; Deny discharge, dysuria, fevers/chills, nausea, rash, urinary incontinence, urinary retention, mass or vomiting Review of Systems Const: Denies: fever(s), chills, body aches, change in appetite, fatigue or malaise ENMT: Denies: throat pain, ear or mastoid pain, nasal discharge or nasal congestion Card: Denies: chest pain, edema, dyspnea on exertion or orthopnea Resp: Denies: dyspnea, productive cough or non-productive cough GI: Denies: nausea or vomiting : Reports: hematuria; Denies: dysuria or urinary incontinence Skin/Breast: Denies: rash or pruritus PFS ED PFSH: Medical History ADHD Alcohol abuse Bipolar 1 disorder, manic, moderate History of hepatitis C Keri Social History Smoking and tobacco status: current every day smoker (chews) smokeless tobacco Smokeless tobacco user: chewing tobacco Smokeless tobacco details: 1 can every 4 days Quit status (tobacco): considering quitting Second hand smoke exposure: No Alcohol intake: never Household members: spouse Marital status: Current occupational status: employed Physical Exam Const: GENERAL APPEARANCE: cooperative and comfortable ORIENTATION/CONSCIOUSNESS: Yes awake, Yes oriented to person, Yes oriented to place and Yes oriented to time HENMT: COMMON NORMALS: normocephalic, atraumatic and hearing grossly normal bilaterally HEAD & SCALP: normocephalic and atraumatic Neck/C-Spine: COMMON NORMALS: no JVD Resp: COMMON NORMALS: normal respiratory effort, No retractions, No use of accessory muscles and clear to auscultation bilaterally AUSCULTATION: clear to auscultation bilaterally Cardio: COMMON NORMALS: no JVD, regular rate, regular rhythm and No murmurs present (Cardio) RATE: regular rate RHYTHM: regular rhythm GI: COMMON NORMALS: Soft to palpation and No hepatosplenomegaly present AUSCULTATION: Yes normoactive bowel sounds PALPATION: Yes Soft to palpation, No Tenderness to palpation present (GI), No Guarding due to palpation present (GI) and Yes No hepatosplenomegaly present : BLADDER/KIDNEY EXAM: Yes CVA tenderness Back/Pelvis: GENERAL BACK: Yes CVA tenderness CVA tenderness: bilateral Extremity: COMMON NORMALS: normal to inspection, capillary refill normal, no clubbing, cyanosis or edema, no calf tenderness and no pedal edema Neuro: SENSORIUM/ORIENTATION: Yes oriented to person, Yes oriented to place and Yes oriented to time Skin: COMMON NORMALS: no rashes or lesions noted GENERAL SKIN EXAM: no rashes or lesions noted Course Vital Signs: Vital signs: Vital Signs Temperature 98.1 F 12/25/21 05:48 Pulse Rate 89 12/25/21 08:34 Respiratory Rate 18 12/25/21 08:34 Blood Pressure 121/74 12/25/21 08:34 Pulse Oximetry 96 12/25/21 08:34 MDM - Male Medical Decision Making T shows 5 mm stone at the UVJ junction. Pain is improved. Will discharge patient home with hydrocodone Zofran and tamsulosin. Additionally have him strain urine. Set him up to see urology within the next week. Return if pain not controlled. Medical Records I reviewed the patient's medical records. Lab Data I reviewed the patient's lab results. : 12/25/21 05:55 12/25/21 05:55 Radiology Impressions Abdomen/Pelvis CT 12/25/21 06:11 IMPRESSION: 3 mm calcification within the urinary bladder. Prominence of the collecting system on the left. Findings consistent with recently passed calculus. Laboratory Results WBC 7.1 10^3/uL (4.0-10.0) 12/25/21 05:55 RBC 4.81 10^6/uL (4.1-5.3) 12/25/21 05:55 Hgb 15.7 g/dL (11.7-16.6) 12/25/21 05:55 Hct 47.0 % (42.0-52.0) 12/25/21 05:55 MCV 97.7 fl (80-94) H 12/25/21 05:55 MCH 32.6 pg (28.0-34.0) 12/25/21 05:55 MCHC 33.4 g/dL (30.0-36.0) 12/25/21 05:55 RDW 13.0 % (12.1-15.1) 12/25/21 05:55 Plt Count 296 10^3/cmm (130-400) 12/25/21 05:55 MPV 9.7 fL (7.4-10.4) 12/25/21 05:55 Neut % (Auto) 40.8 % 12/25/21 05:55 Lymph % (Auto) 35.3 % 12/25/21 05:55 [place] % (Auto) 17.4 % 12/25/21 05:55 Eos % (Auto) 5.6 % 12/25/21 05:55 Baso % (Auto) 0.6 % 12/25/21 05:55 Neut # (Auto) 2.92 10^3/uL (1.8-7.7) 12/25/21 05:55 Lymph # (Auto) 2.5 10^3/uL (0.8-4.8) 12/25/21 05:55 [place] # (Auto) 1.2 10^3/uL (0.2-0.9) H 12/25/21 05:55 Eos # (Auto) 0.4 10^3/uL (0.0-0.8) 12/25/21 05:55 Baso # (Auto) 0.0 10^3/uL (0.0-0.1) 12/25/21 05:55 Nucleated RBC % (auto) 0 % 12/25/21 05:55 Nucleated RBCs # 0.0 /100WBC 12/25/21 05:55 Sodium 139 mmol/L (136-145) 12/25/21 05:55 Potassium 3.4 mmol/L (3.5-5.1) L 12/25/21 05:55 Chloride 102 mmol/L (98-107) 12/25/21 05:55 Carbon Dioxide 26 mmol/L (22-29) 12/25/21 05:55 Anion Gap 14.4 (5-19) 12/25/21 05:55 BUN 17 mg/dL (6-20) 12/25/21 05:55 Creatinine 1.2 mg/dL (0.7-1.2) 12/25/21 05:55 GFR Calculation 62.4 mL/min (90-130) L 12/25/21 05:55 Glucose 114 mg/dL (65-115) 12/25/21 05:55 Calculated Osmolality 290 mOsm/kg (285-295) 12/25/21 05:55 Calcium 9.0 mg/dL (8.5-10.5) 12/25/21 05:55 Total Bilirubin 0.2 mg/dL (0.15-1.2) 12/25/21 05:55 AST 14 U/L (0-40) 12/25/21 05:55 ALT 15 U/L (0-41) 12/25/21 05:55 Alkaline Phosphatase 79 IU/L (40-130) 12/25/21 05:55 Total Protein 7.3 g/dL (6.6-8.7) 12/25/21 05:55 Albumin 4.7 g/dL (3.5-5.2) 12/25/21 05:55 Globulin 2.6 g/dL (1.3-4.6) 12/25/21 05:55 Discharge Plan Discharge Patient Disposition: Home Clinical Impression: Nephrolithiasis Condition: Stable Prescriptions: New ketorolac 10 mg tablet 10 mg PO Q6H PRN (Reason: pain) 3 Days Qty: 12 0RF No Action dextroamphetamine-amphetamine [Adderall] 20 mg tablet 20 mg PO DAILY 30 Days Qty: 30 0RF Rx Instructions: 1 po q noon dextroamphetamine-amphetamine [Adderall] 30 mg tablet 30 mg PO DAILY 30 Days Qty: 30 0RF Rx Instructions: one po q am. lithium carbonate 300 mg capsule 300 mg PO TID 30 Days Qty: 120 2RF Rx Instructions: Take one capsule in am, one capsule at noon and two in pm. penicillin V potassium 500 mg tablet 500 mg PO TID 10 Days Qty: 30 0RF lidocaine HCl [Lidocaine Viscous] 2 % solution 1 applic mucous membrane QID PRN (Reason: pain) Qty: 100 1RF ketorolac 10 mg tablet 10 mg PO TID PRN (Reason: pain) 5 Days Qty: 20 1RF Discharge Orders: Discharge ED (Routine); Ordered 12/25/21 Ordered By: Indra Escobar Referrals: Dior Campos MD [Primary Care Provider] - Discharge Diet: Usual diet Discharge Activity: Resume usual activity Patient Instructions: Opioid Safety Activity Restrictions/Additional Instructions: Kidney stone has passed to the bladder. You can use ketorolac as needed for discomfort. Do not take any other anti-inflammatory such as Aleve or ibuprofen with that. Follow-up with your primary care doctor if you have further problems. Coding Level of Care Code ED Lip Reading Teacher for Chiara Fwd Exam Comprehensive
[2021-12-25 07:44] VITALS: RESP 18; O2SAT 94
[2021-12-25] MEDS: ondansetron 2 mg/ML SDV 2 mL 4 MG IVP (07:46)
--- NOTE | 2021-12-25 08:14 | PC.NURSE ---
updated patient on AMA request. IV removed. Spoke with overnight physician who is contacting day shift physician
[2021-12-25 08:34] VITALS: BP 121/74; PULSE 89; RESP 18; O2SAT 96
== END 2021-12-25 08:36 | disposition home or self-care (01) ==
PROVIDERS: Emergency Medicine; Emergency Provider Family Medicine; PCP Family Medicine
DX: N20.0 Calculus of kidney (principal); Z86.19 Personal history of other infectious and parasitic diseases; F17.220 Nicotine dependence, chewing tobacco, uncomplicated
CPT/HCPCS: 74176; 80053; 85025; 96361; 96374; 96375; 96376; 99284; J2270; J2405

== ENCOUNTER → 2022-04-16 11:53 | Outpatient (BNVA) | payer OTHER, SELFPAY | PROVIDERS: PCP Family Medicine; Visit Provider Family Medicine | DX: F31.12 Bipolar disorder, current episode manic without psychotic features, moderate (principal); F90.9 Attention-deficit hyperactivity disorder, unspecified type; Z79.899 Other long term (current) drug therapy; M25.572 Pain in left ankle and joints of left foot; F90.2 Attention-deficit hyperactivity disorder, combined type | CPT/HCPCS: 80053; 80178; 85025 ==

== ENCOUNTER → 2022-05-13 09:42 | Outpatient (BNVA) | payer OTHER, SELFPAY | PROVIDERS: PCP Family Medicine; Visit Provider Podiatrist Foot & Ankle Surgery | DX: M25.572 Pain in left ankle and joints of left foot (principal); Z48.89 Encounter for other specified surgical aftercare | CPT/HCPCS: 73610 ==

== ENCOUNTER → 2022-07-08 16:02 | Outpatient (BNVA) | payer OTHER, SELFPAY | PROVIDERS: PCP Family Medicine; Visit Provider Family Medicine | DX: F31.12 Bipolar disorder, current episode manic without psychotic features, moderate (principal); F90.2 Attention-deficit hyperactivity disorder, combined type | CPT/HCPCS: 80178 ==

== ENCOUNTER → 2022-10-09 11:00 | Outpatient (BNVA) | payer OTHER, SELFPAY | PROVIDERS: PCP Family Medicine; Visit Provider Family Medicine | DX: F31.12 Bipolar disorder, current episode manic without psychotic features, moderate (principal); F90.2 Attention-deficit hyperactivity disorder, combined type | CPT/HCPCS: 80178 ==

== ENCOUNTER 2022-12-25 06:00 | Outpatient (RCR) | payer OTHER, SELFPAY | END 2023-01-10 23:59 | disposition home or self-care (01) | LOC: TPT 06:00 | PROVIDERS: PCP Family Medicine; Visit Provider Family Medicine | DX: M51.36 Other intervertebral disc degeneration, lumbar region (principal) | CPT/HCPCS: 97110; 97161 ==

== ENCOUNTER → 2023-04-03 15:30 | Outpatient (BNVA) | payer OTHER, SELFPAY | PROVIDERS: PCP Family Medicine; Visit Provider Family Medicine | DX: F31.12 Bipolar disorder, current episode manic without psychotic features, moderate (principal) | CPT/HCPCS: 80053; 80178; 85025 ==

== ENCOUNTER → 2023-08-28 16:36 | Outpatient (BNVA) | payer OTHER, SELFPAY | PROVIDERS: PCP Family Medicine; Visit Provider Family Medicine | DX: J02.9 Acute pharyngitis, unspecified (principal) | CPT/HCPCS: 87071; 87880 ==

== ENCOUNTER → 2024-02-24 09:38 | Outpatient (BNVA) | payer OTHER, SELFPAY | PROVIDERS: PCP Family Medicine; Visit Provider Family Medicine | DX: F31.12 Bipolar disorder, current episode manic without psychotic features, moderate (principal); Z79.899 Other long term (current) drug therapy; Z13.6 Encounter for screening for cardiovascular disorders | CPT/HCPCS: 80053; 80061; 80178; 84443; 85025 ==

== ENCOUNTER → 2024-03-04 13:39 | Outpatient (BNVA) | payer OTHER, SELFPAY | PROVIDERS: PCP Family Medicine; Visit Provider Family Medicine | DX: Z79.899 Other long term (current) drug therapy (principal) | CPT/HCPCS: 80178 ==